=== PATIENT | male | born 1940 | race Caucasian/White ===

== ENCOUNTER → 2017-10-21 13:12 | Outpatient (CLI) | payer MEDICARE, SELFPAY ==
--- NOTE | 2017-10-21 13:19 | MRI_ITS ---
STUDY: MRI LEFT KNEE REASON FOR EXAM: Left knee pain for 3 months, injury years ago. TECHNIQUE: Standardized fat and water weighted pulse sequences were obtained in all 3 orthogonal planes. COMPARISON: Radiographs 08/09/2017. FINDINGS: There is a complex tear of the posterior horn of the medial meniscus (proton-density sagittal images 8-14) including a radial component (T2 coronal image 9). There is mild peripheral subluxation of the medial meniscus. There is mild arthrosis of the medial femorotibial compartment with mild partial-thickness chondral loss (T2 sagittal image 6). There is mild subchondral bone edema of the medial femoral condyle and tibial plateau (T2 sagittal images 5-7), a stress phenomenon. Normal medial collateral ligamentous complex (MCL). Normal distal semimembranosus, gracilis and semitendinosus tendons. There is a complex tear of the posterior horn of the lateral meniscus (proton-density sagittal images 33-35). Normal hyaline cartilage of the lateral femorotibial compartment. There is mild subchondral bone edema of the lateral tibial plateau (T2 coronal images 13-15), a stress phenomenon. Normal proximal tibiofibular articulation. Normal lateral collateral (fibular) ligament. Normal popliteus tendon. Normal biceps femoris tendon. Normal anterior cruciate ligament (ACL). Normal posterior cruciate ligament (PCL). Normal congruent patellofemoral articulation. There is arthrosis of the patellofemoral compartment with partial-thickness chondral loss (T2 sagittal image 14) and mild subchondral cystic change of the lateral femoral trochlea. Normal medial and lateral patellar retinaculum. Normal visualized quadriceps tendon. Normal patellar tendon. Normal Hoffa's fat pad. There is a small joint effusion. There is a popliteal cyst measuring approximately 5.3 cm in length with extravasation of fluid (T2 sagittal images 4-12). There is a chondroid series tumor in the distal femoral metaphysis (T2 coronal images 17-21) measuring 2.5 cm in length most suggestive of an enchondroma. MRI/Lower Ext Joint Only (Routine) IMPRESSION: Medial meniscal tear. Lateral meniscal tear. 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 Mild subchondral bone edema of the medial and lateral tibial plateau and medial femoral condyle, a stress phenomenon. Small joint effusion. Popliteal cyst with extravasation of fluid. 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 Electronically Signed: Siva Santos MD at 14:42 EST Tel , Service support ,
== END ==
PROVIDERS: Family Provider Family Medicine; PCP Family Medicine; Visit Provider Orthopaedic Surgery
DX: M23.305 Other meniscus derangements, unspecified medial meniscus, unspecified knee (principal)
CPT/HCPCS: 73721

== ENCOUNTER 2018-03-06 13:42 | Emergency (ER) | payer MEDICARE, SELFPAY ==
--- NOTE | 2018-03-06 13:42 | DT_ITS ---
This patient was seen during an EMR downtime February 27, 2018 - March 06, 2018. This patient may have a combination of paper and electronic documentation or all paper documentation. All documentation is viewable within the e-chart portion of [facility] for each patient visit.
[2018-03-06 13:43] VITALS: BP 124/78; PULSE 75; RESP 16; TEMP 36; O2SAT 96; BMI 28.4
--- NOTE | 2018-03-06 14:04 | CT_ITS ---
STUDY: CT ABDOMEN AND PELVIS WITHOUT CONTRAST REASON FOR EXAM: Male, 77 years old. Flank pain RADIATION DOSAGE (If Supplied By Facility): CTDIvol = ( 13.79 ) mGy, DLP = ( 676.38 ) mGycm TECHNIQUE: Transaxial images were obtained from the dome of the diaphragm to the symphysis pubis without oral contrast, and without intravenous contrast. Sagittal and coronal images were reconstructed. Individualized dose optimization techniques were used for this CT. COMPARISON: None. FINDINGS: The visualized lung bases are unremarkable. The visualized portions of the heart are within normal limits. There is a cystic structure within the liver measuring 1.5 cm. There is a cystic structure in the lower right hepatic lobe measuring 2.4 x 0.9 cm. Normal gallbladder and extrahepatic biliary system. Normal spleen. Normal pancreas. Normal bilateral adrenal glands. There is a stone in the right kidney measuring 4.0 mm. Normal left kidney. There is a small hiatal hernia. Normal small intestine. There is a moderate amount of stool in the colon. There is diverticulosis without evidence of diverticulitis. The appendix is visualized and appears normal. There is partial calcification of the aorta and bilateral renal arteries. Normal inferior vena cava. Normal retroperitoneum. There is mild wall thickening of the bladder. Normal visualized prostate gland. There is a small umbilical hernia containing fat. There is a left side fatty umbilical hernia. There are diffuse degenerative changes of the visualized lumbar spine. There is a bony hemangioma at the level L3. There is mild disc space narrowing and endplate sclerosis. There is mild neural foramina narrowing at L3-L4 L4-L5 and L5-S1. CT/Abdomen/Pelvis without Cont IMPRESSION: Right side mid renal stone. No visualized evidence of hydronephrosis. There is mild wall thickening of the bladder. Consider cystitis. There is borderline enlargement of the prostate with calcifications. Diverticulosis no evidence of diverticulitis. There is constipation and abundant stool within the ascending colon and cecum. Benign-appearing hepatic cysts. Electronically Signed: Екатерина Andino MD at 15:23 EDT Tel , Service support ,
[2018-03-06 14:27] LABS: Absolute Lymphocyte Count 1.02 X10^3/ul (0.83-4.51); Basophil# 0.03 X10^3/uL; Basophil% 0.3 % (0-1); Eosinophil# 0.06 X10^3/uL; Eosinophils% 0.7 % (0-5); Hematocrit 44.6 % (40-54); Hemoglobin 15.3 g/dl (13.0-16.5); Lymphocyte # 1.02 X10^3/ul (4.0); Lymphocyte % 11.7 % (19-41); Mean Corp Hgb Conc 34.3 g/gl (32-36); Mean Corpuscular Hgb 32.6 pg (27.0-32.0); Mean Corpuscular Volume 95.1 fL (80-94); Mean Platelet Vol. 10.3 fl (6.2-12.0); Monocyte# 0.61 X10^3/uL; Neutrophil # 6.95 X10^3/uL (2.7-7.7); Neutrophil % 80.1 % (47-70); Platelet Count 203 K/mm3 (150-450); RBC Distribution Width CV 13.1 % (11.6-14.6); RBC Distribution Width SD 44.4 fl (35.1-43.9); Red Blood Count 4.69 M/mm3 (4.6-6.2); White Blood Count 8.7 K/mm3 (4.4-11.0)
[2018-03-06 14:29] LABS: POSITIVE COUNT NO; POSITIVE DIFFERENTIAL NO; POSITIVE MORPHOLOGY NO
[2018-03-06 14:39] LABS: Anion Gap 8 (5-15); BUN 13 mg/dL (7-18); BUN/Creat Ratio 13.2 RATIO (10-20); Calcium,Total 8.6 mg/dL (8.5-10.1); Chloride 103 mmol/L (98-107); Creatinine, Serum 0.99 mg/dL (0.70-1.30); EST Glomerular Filtration Rate 78 mL/min (>60); Est Glom Filt Rate - Afr Amer 94 mL/min (>60); Glucose 118 mg/dL (74-106); Sodium Level 140 mmol/L (136-145)
[2018-03-06 15:22] LABS: Bacteria 0 SEEN /hpf (None Seen); Mucous, Urine 0 SEEN /hpf (<or=2+); Squamous Epithelial Cells - UA 0 SEEN /hpf (0-5); White Blood Cells 0 SEEN /hpf (0-5)
[2018-03-06 15:23] LABS: Color, Urine Yellow (Yellow); Glucose, Dipstick Normal (Normal); Ketone-Dipstick Negative (Negative); Leukocyte Esterase-Dipstick Negative /ul (Negative); Nitrite-Dipstick Negative (Negative); Occult Blood-Urine 10 /ul (Negative); Protein-Dipstick 30 mg/dl (Negative); Specific Gravity, Urine 1.015 (1.002-1.030); Urine Bilirubin Dipstick Negative (Negative); Urine Clarity Sl. Cloudy (Clear); Urine Urobilinogen Normal (Normal)
[2018-03-06 15:29] LABS: Red Blood Cells-Urine 0-5 SEEN /hpf (0-5)
--- NOTE | 2018-03-06 15:49 | ED.VIS.GEN ---
History of Present Illness Chief Complaint: Flank Pain Informant: Patient, Family Onset: Today, Hours - 4 Context: Sudden Onset Timing: Continuous Quality: achy, colicky Location: right flank Current Severity: Mild Maximum Severity: Severe Worsened by: nothing Relieved by: oxycodone Associated Symptoms: no fevers, urinary sx, n/v, injury Narrative: Same symptoms in the same side that he had a kidney stone in the past, feels just like it. No systemic symptoms. Was at rest when the symptoms started this morning. Prior similar symptoms: Yes - Past Medical History (1) HTN (hypertension) Status: Chronic (2) Hyperlipidemia Status: Chronic (3) BPH (benign prostatic hyperplasia) Status: Chronic Past Medical History - Allergies and Home Meds Allergies/Adverse Reactions: Allergies penicillin V Allergy (Mild, Verified 11/10/17 08:10) rash hydromorphone [From Dilaudid] Allergy (Verified 03/06/18 13:45) Other HALLUCINATIONS Primary Care Physician: Osman Perera DO [Primary Care Provider] - Surgical History: rotator cuff repair Lives: Spouse/ Significant Other Smoking Status: Never smoker Review of Systems All systems negative except as indicated General: Denies: Fever Cardiovascular: Denies: Chest pain, Palpitations Respiratory: Denies: Dyspnea, Cough Gastrointestinal: Reports: Abdominal pain. Denies: Nausea, Vomiting Musculoskeletal: Reports: Back pain. Denies: Myalgias, Arthralgias, Neck pain, Extremity Pain Skin: Denies: Rash, Wounds Neurological: Denies: Headache, Weakness, Parasthesia Physical Exam Vital Signs/Narrative: Vital Signs Temp Pulse Resp BP Pulse Ox 03/06/18 13:43 96.8 F L 75 16 124/78 H 96 Inital Vital Signs reviewed: Yes General: Well nourished, Well developed, - - well-appearing Head: Normocephalic, Atraumatic Eyes: Perrl, EOMI ENT: Moist mucous membranes, No rhinorrhea Neck: Supple, Nontender Cardiovascular: Regular rate, Regular rhythm, No murmurs Respiratory: No distress, CTA bilaterally, Chest nontender Abdomen: Soft, Nontender, Nondistended, Normal bowel sounds Back: Nontender, Normal Inspection. Negative for: CVA tenderness Extremities: Nontender, No edema Skin: Normal color, No rash Neurological: Alert, Oriented x3, Cranial nerves II-XII grossly intact, Normal Strength, Normal Sensation, Normal Gait Psychological: Normal affect Diagnostic/Tx/Re-eval Impressions Abdomen/Pelvis CT 03/06/18 14:04 IMPRESSION: Right side mid renal stone. No visualized evidence of hydronephrosis. There is mild wall thickening of the bladder. Consider cystitis. There is borderline enlargement of the prostate with calcifications. Diverticulosis no evidence of diverticulitis. There is constipation and abundant stool within the ascending colon and cecum. Benign-appearing hepatic cysts. Electronically Signed: Екатерина Andino MD at 15:23 EDT Tel , Service support , 03/06/18 14:04 CT Abd [Abdomen/Pelvis without Cont] [CT] Stat Laboratory Results 03/06/18 03/06/18 03/06/18 Range/Units 14:19 14:19 15:15 WBC 8.7 (4.4-11.0) K/mm3 RBC 4.69 (4.6-6.2) M/mm3 Hgb 15.3 (13.0-16.5) g/dl Hct 44.6 (40-54) % MCV 95.1 H (80-94) fL MCH 32.6 H (27.0-32.0) pg MCHC 34.3 (32-36) g/gl RDW 13.1 (11.6-14.6) % RDW Differential 44.4 H (35.1-43.9) fl Plt Count 203 (150-450) K/mm3 MPV 10.3 (6.2-12.0) fl Immature Gran % (Auto) 0.200 (0.0-0.9) % Neut % (Auto) 80.1 H (47-70) % Lymph % (Auto) 11.7 L (19-41) % [place] % (Auto) 7.0 (0-10) % Eos % (Auto) 0.7 (0-5) % Baso % (Auto) 0.3 (0-1) % Absolute Neuts (auto) 7.0 (2.0-7.7) X10^3/uL Absolute Lymphs (auto) 1.02 (0.83-4.51) X10^3/ul Total Counted Not Reportable Sodium 140 (136-145) mmol/L Potassium 4.0 (3.5-5.1) mmol/L Chloride 103 (98-107) mmol/L Carbon Dioxide 29.0 (21.0-32.0) mmol/L Anion Gap 8 (5-15) BUN 13 (7-18) mg/dL Creatinine 0.99 (0.70-1.30) mg/dL Est GFR (MDRD) Af Amer 94 (>60) mL/min Est GFR (MDRD) Non-Af 78 (>60) mL/min BUN/Creatinine Ratio 13.2 (10-20) RATIO Glucose 118 H (74-106) mg/dL Calcium 8.6 (8.5-10.1) mg/dL Urine Color Yellow (Yellow) Urine Clarity Sl. Cloudy (Clear) Urine pH 6.0 (5.0 - 8.0) Ur Specific [place] 1.015 (1.002-1.030) Urine Protein 30 H (Negative) mg/dl Urine Glucose (UA) Normal (Normal) mg/dl Urine Ketones Negative (Negative) mg/dl Urine Occult Blood 10 H (Negative) /ul Urine Nitrite Negative (Negative) Urine Bilirubin Negative (Negative) mg/dL Urine Urobilinogen Normal (Normal) mg/dl Ur Leukocyte Esterase Negative (Negative) /ul Urine RBC 0-5 SEEN (0-5) /hpf Urine WBC 0 SEEN (0-5) /hpf Ur Squamous Epith Cells 0 SEEN (0-5) /hpf Urine Bacteria 0 SEEN (None Seen) /hpf Urine Mucus 0 SEEN (<or=2+) /hpf - Medical Decision Making CT shows no signs of ureterolithiasis/urolithiasis except for a small calcification seen in the kidney that was there in 2007, the last time he was seen here for this problem. Labs are unremarkable. Urinalysis does show a small amount of blood, consistent with recently passed stone. He urinated 3 times prior to getting here, had some residual discomfort upon arrival, that completely resolved with observation and no further medications. At this time I think he is stable for discharge, encouraged to return if worse. ED Disposition - Plan for ED Patient: Disposition: Home or Assisted Living Chief Complaint: Flank Pain Diagnosis: Renal colic on right side, Right nephrolithiasis Instructions: ED Stone Renal Passed Referrals: Osman Perera DO [Primary Care Provider] - As Needed
[2018-03-06 15:54] VITALS: BP 130/77; PULSE 68; RESP 18
[2018-03-06 16:21] VITALS: BP 130/77; PULSE 68; RESP 18
== END 2018-03-06 16:22 | disposition home or self-care (01) ==
PROVIDERS: Emergency Provider Emergency Medicine; Family Provider Family Medicine; PCP Family Medicine
DX: N20.0 Calculus of kidney (principal); I10 Essential (primary) hypertension; E78.5 Hyperlipidemia, unspecified; N40.0 Benign prostatic hyperplasia without lower urinary tract symptoms
CPT/HCPCS: 74176; 80048; 81001; 85025; 99283; A4216

== ENCOUNTER 2018-05-08 06:24 | Inpatient (IN) | payer MEDICARE, SELFPAY ==
[2018-05-05 15:06] LABS: Partial Thromboplast Time 30.3 Seconds (24.1-36.2); Prothrombin Time (Protime)PT. 13.4 SECONDS (11.7-14.9)
[2018-05-05 15:13] LABS: AST(SGOT) 79 U/L (15-37); Alanine Aminotransfer ALT/SGPT 46 U/L (16-61); Albumin, Serum 3.7 g/dL (3.2-5.0); Alkaline Phosphatase 71 U/L (45-117); Bilirubin, Direct 0.19 mg/dL (0.00-0.30); Globulin 3.7 g/dL (2.2-4.2); Protein, Total 7.4 g/dL (6.4-8.2)
[2018-05-05 18:48] LABS: Anion Gap 6 (5-15); BUN 14 mg/dL (7-18); BUN/Creat Ratio 13.1 RATIO (10-20); Chloride 108 mmol/L (98-107); Creatinine, Serum 1.07 mg/dL (0.70-1.30); EST Glomerular Filtration Rate 71 mL/min (>60); Est Glom Filt Rate - Afr Amer 86 mL/min (>60); Glucose 94 mg/dL (74-106); Potassium 4.2 mmol/L (3.5-5.1); Sodium Level 142 mmol/L (136-145)
[2018-05-06 12:00] LABS: Absolute Lymphocyte Count 1.17 X10^3/ul (0.83-4.51); Absolute Neutrophil Count 4.5 X10^3/uL (2.0-7.7); Basophil# 0.02 X10^3/uL; Basophil% 0.3 % (0-1); Eosinophil# 0.22 X10^3/uL; Eosinophils% 3.3 % (0-5); Hematocrit 41.8 % (40-54); Hemoglobin 13.8 g/dl (13.0-16.5); Lymphocyte # 1.17 X10^3/ul (4.0); Lymphocyte % 17.8 % (19-41); Mean Corpuscular Hgb 31.5 pg (27.0-32.0); Mean Corpuscular Volume 95.4 fL (80-94); Mean Platelet Vol. 10.1 fl (6.2-12.0); Monocyte# 0.71 X10^3/uL; Monocyte% 10.8 % (0-10); Neutrophil # 4.46 X10^3/uL (2.7-7.7); Neutrophil % 67.6 % (47-70); Platelet Count 197 K/mm3 (150-450); RBC Distribution Width CV 12.9 % (11.6-14.6); RBC Distribution Width SD 45.2 fl (35.1-43.9); Red Blood Count 4.38 M/mm3 (4.6-6.2); White Blood Count 6.6 K/mm3 (4.4-11.0)
[2018-05-06 12:01] LABS: POSITIVE COUNT NO; POSITIVE DIFFERENTIAL NO; POSITIVE MORPHOLOGY NO
[2018-05-08] VITALS (15 sets, daily range): BP systolic 75–126; BP diastolic 40–79; PULSE 57–75; RESP 8–18; TEMP 36.1–36.9; O2SAT 93–100; BMI 28.4
[2018-05-08] MEDS: levoFLOXacin IV 500 MG/100 ML BAG 100 MG IV (07:35)
--- NOTE | 2018-05-08 08:45 | COL._PTH ---
PATIENT: ROVERTO CALLEJAS LOC: MS3 U#:[id number] AGE/SX: 77/M ROOM: [facility] [place]05[place]08/[address]: Dr. Ham Vidal MD : 1940 BED: 1 DIS: 05/12/2018 SPEC #: [id number] RECD: 05/08/18 12:52 STATUS: SAFIA RETiffany #: [id number] BERT: 05/08/18 08:[address]: Ham Vidal DEPT: SURGICAL PATHOLOGY RECD BY: Ham Del Valle ENTERED: 05/08/18 13:02 SP TYPE: COLON OTHR DR: Dr. 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 Appendix, hyperplastic changes. Four pericolonic lymph nodes with reactive changes. 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 MICROSCOPIC DESCRIPTION Slides are reviewed. GROSS DESCRIPTION Received in fixative is one container labeled with the patient's name and designated right colon. The specimen consists of a right hemicolectomy specimen consisting of cecum with ascending colon, small intestine and appendix with attached adipose tissue. The specimen is previously opened. The cecum with ascending colon measures 15 cm in length, segment of small intestine measures 5 cm in length and the appendix measures 6 cm in length and up to 0.5 cm in diameter. 5 cm away from the ileocecal valve and 5 cm away from the distal resection margin there is a sessile polyp measuring 3.5 x 1 x 0.6 cm. Both resection margins are stapled. More dictation will follow after overnight fixation. The pericolonic adipose tissue is fixed in lymph node revealing solution. / FANNIE:harris 05/08/18 Sections of the appendix reveal pinpoint lumen. No fecalith is identified. Sections of the polyp reveal it is entirely mucosal in location. No invasion into the underlying wall is noted. Sections of pericolonic adipose tissue reveal multiple lymph nodes. The largest lymph node measures 0.3 cm in greatest dimension. Traffic Inspector sections are submitted in eight cassettes as follows: 1 ? appendix, 2 ? proximal and distal resection margin, 36 ? entire polyp with underlying wall, 7 ? associate financial representative section of ileocecal valve, small and large intestine, 8 ? multiple lymph nodes. / FANNIE:harris 05/09/18 TC:1 CPT: 31611
--- NOTE | 2018-05-08 12:16 | PCM.OPRPT ---
Report of Operation Date of Procedure: 05/08/18 Pre-Operative Diagnosis: mid ascending colon polyp - multiple attempts at resection Post-Operative Diagnosis: mid ascending colon polyp - multiple attempts at resection - successfully removed Surgery/Procedure Performed:: laparoscopic right hemicolectomy Type of Anesthesia:: General Anesthesiologist: Freeman Vega - ASA2 Specimen's removed: right colon Estimated Blood Loss (mL): 100 Fluids Replaced: 1500 Description of Procedure: The patient was brought to the operating suite. Sign in was performed verifying patient, site, procedure, position, and DVT prophylaxis with SCDs. Patient Ciprofloxin 500mg Preoperative bowel prep of mechanical and antibiotic comprised of GoLYTELY and then neomycin and Flagyl 1 g 3 doses evening before was given Following induction of general anesthetic. The patients abdomen was prepped and draped in the usual fashion. Timeout was performed verifying patient, site, position. Local anesthetic was injected below the umbilicus. Incision made and dissection carried down to the umbilical root fascia. 2 stay sutures were placed. Incision made in the fascia, the peritoneum entered under direct visualization. A 10 mm Patel trocar was inserted and secured with the stay sutures. Pneumoperitoneum to 15 mmHg was insufflated. Visual inspection revealed normal-appearing liver, normal-appearing visualized abdominal structures. Tattooing was visible in the mid ascending colon.. 3 - 5mm ports were placed in the standard midline position. Mobilization the avascular plane was undertaken from the base of the cecum up and around the hepatic flexure. Division of the lesser sac from the midline to the hepatic flexure was undertaken. When this was fully mobilized. The duodenum was visualized from the right flank region. Next, the terminal ileum area was brought up and a cleavage point noted in the mesentery. Harmonic Scalpel was used to create a window in the terminal ileal mesentery and division was taken down to the ileocolic root. Next the transverse colon was grasped and the vasculature coming from the middle colic vessel was identified. A window was made in the bare area proximal to the middle colic vessels just overlying the duodenal sweep. This was also fully divided. Dissection was then carried out at the ileal colic vessel root. The artery and vein were identified and doubly clipped proximally and doubly clipped distally with Hem-o-jose luis clips. With full dissection of the mesentery and full mobilization the colon, the umbilical incision was extended and a wound protector placed. The terminal ileum and cecum ascending colon part of the transverse colon were delivered through the wound protector. Complete division of the mesentery to the bowel was undertaken at both sites. The bowel was transected with an intestinal load echelon stapler. On this a functional stapled end-to-end anastomosis was performed between the ileum and transverse colon with an echelon stapler. The staple line was checked for hemostasis and following this the anastomosis closed with a TA stapler creating a wide triangle opening that was easily palpable. A 3-0 silk suture was used to take tension off the apex of the staple line.e. At this point, the specimen was opened on the back table. There was noted to be tumor in the expected location. Gown and gloves were changed. Pneumoperitoneum was reestablished. The 5mm ports were removed under direct visualization with no signs of bleeding. Pneumoperitoneum was released. The umbilical fascial defect was closed with a running 0 PDS suture. Subcutaneous fat reapproximated with interrupted 3-0 Vicryl sutures. Skin was closed with interrupted 4-0 Monocryl subcuticular sutures. Steri-Strips and bandages were applied. The patient was brought to recovery room in stable condition. - Admit VTE Documentation VTE Present on Admission: No VTE Mechan Device Prophylaxis: SCD's VTE Pharm Prophylaxis ordered?: No
[2018-05-08] MEDS: Bupivacaine 0.5% PF 10 ML VIAL (12:22)
--- NOTE | 2018-05-08 12:29 | OP.PCM_ITS ---
Report of Operation Date of Procedure: 05/08/18 Pre-Operative Diagnosis: mid ascending colon polyp - multiple attempts at resection Post-Operative Diagnosis: mid ascending colon polyp - multiple attempts at resection - successfully removed Surgery/Procedure Performed:: laparoscopic right hemicolectomy wardrobe coordinator: Aysha Holguin Type of Anesthesia:: General Anesthesiologist: Freeman Veag - ASA2 Specimen's removed: right colon Estimated Blood Loss (mL): 100 Fluids Replaced: 1500
--- NOTE | 2018-05-08 14:15 | NURSING ---
pt arrived to floor from pacu. pt wakes easy. vitals 97.1 temp hr 60, resp 16 with 25-30 sec apnea. sats 93% on 3.5l nc bp left arm 83/43, right arm 75/40. paged dr haro. rechecked vital signs bp 78/42 hr 57, resp 8 with 30 sec apnea, sats 93% on 3.5l nc. pt wakes easy and talking to nursing. dr haro returned page and ordered 500cc lr bolus. bolus given per dr weir.
[2018-05-08] MEDS: Lactated Ringers 1,000 ML 80 ML IV (14:18)
[2018-05-08] MEDS: Lactated Ringers 500 ML 999 ML IV ×2 (14:19→15:55)
[2018-05-08] MEDS: Ondansetron 4 MG/2 ML Vial IV (15:10)
--- NOTE | 2018-05-08 21:20 | NURSING ---
patient ambulated in hallway with this rn
[2018-05-08] MEDS: Ciprofloxacin 400 MG/200 ML BAG 200 MG IV (21:23)
[2018-05-08] MEDS: Atorvastatin Calcium 10 MG Tablet 30 MG PO (21:24)
[2018-05-09 02:07] VITALS: BP 123/66; PULSE 76; RESP 18; TEMP 36.4; O2SAT 96
[2018-05-09] MEDS: Lactated Ringers 1,000 ML 80 ML IV (03:34)
[2018-05-09 06:16] LABS: Absolute Lymphocyte Count 0.74 X10^3/ul (0.83-4.51); Absolute Neutrophil Count 10.4 X10^3/uL (2.0-7.7); Eosinophil# 0.01 X10^3/uL; Eosinophils% 0.1 % (0-5); Hematocrit 37.9 % (40-54); Hemoglobin 12.8 g/dl (13.0-16.5); Lymphocyte # 0.74 X10^3/ul (4.0); Lymphocyte % 5.9 % (19-41); Mean Corp Hgb Conc 33.8 g/gl (32-36); Mean Corpuscular Hgb 32.2 pg (27.0-32.0); Mean Corpuscular Volume 95.5 fL (80-94); Mean Platelet Vol. 10.5 fl (6.2-12.0); Monocyte# 1.25 X10^3/uL; Neutrophil # 10.42 X10^3/uL (2.7-7.7); Neutrophil % 83.8 % (47-70); Platelet Count 177 K/mm3 (150-450); RBC Distribution Width CV 13.2 % (11.6-14.6); Red Blood Count 3.97 M/mm3 (4.6-6.2); White Blood Count 12.4 K/mm3 (4.4-11.0)
[2018-05-09 06:19] LABS: POSITIVE COUNT NO; POSITIVE DIFFERENTIAL NO; POSITIVE MORPHOLOGY NO
[2018-05-09 06:25] LABS: Anion Gap 10 (5-15); BUN 16 mg/dL (7-18); BUN/Creat Ratio 14.8 RATIO (10-20); Calcium,Total 8.4 mg/dL (8.5-10.1); Chloride 106 mmol/L (98-107); Creatinine, Serum 1.08 mg/dL (0.70-1.30); EST Glomerular Filtration Rate 70 mL/min (>60); Est Glom Filt Rate - Afr Amer 85 mL/min (>60); Glucose 105 mg/dL (74-106); Potassium 4.2 mmol/L (3.5-5.1); Sodium Level 142 mmol/L (136-145)
[2018-05-09 08:00] VITALS: BP 146/72; PULSE 64; RESP 18; TEMP 36.8; O2SAT 98
[2018-05-09] MEDS: Ciprofloxacin 400 MG/200 ML BAG 200 MG IV (09:36)
[2018-05-09] MEDS: amLODIPine 10 MG Tablet PO (09:36)
[2018-05-09] MEDS: Aspirin E.C. 81 MG Tablet PO (09:36)
[2018-05-09] MEDS: Finasteride 5 MG Tablet PO (09:37)
--- NOTE | 2018-05-09 11:20 | CASEMGMT ---
RN GÉNESIS Face to Face with patient for initial transition planning/care coordination assessment. RN CM introduced self and role at [facility]. Patient sitting in chair, alert and oriented, family at bedside. Patient willing to participate in assessment and is able to answer all questions appropriately. Care providers, pharmacy, and demographics verified. See link attached. Patient wishes to discharge home, denies need for home health at this time. Patient states he has no further needs or concerns at this time. CM to follow for discharge planning needs that may arise. Disposition Plan: Patient to discharge home with family support and follow-up plans in place.
[2018-05-09 12:29] VITALS: BP 141/74; PULSE 59; RESP 18; TEMP 36.6; O2SAT 98
[2018-05-09 16:50] VITALS: BP 140/65; PULSE 58; RESP 18; TEMP 36.1; O2SAT 97
--- NOTE | 2018-05-09 19:10 | PCM.PN.SRG ---
Subjective: no complaints, no significant pain, - Physical Exam General: Alert, Oriented x3, Cooperative Lungs: Clear to auscultation, Normal air movement Cardiovascular: Regular rate, No murmurs Abdomen: Bowel Sounds Present, Soft, Non Tender Vital Signs Temp Pulse Resp BP Pulse Ox 97.0 F L 58 L 18 140/65 H 97 05/09/18 16:50 05/09/18 16:50 05/09/18 16:50 05/09/18 16:50 05/09/18 16:50 Oxygen Flow Rate (L/min) 2 Oxygen Delivery Method Room Air Weight: 90 kg Body Mass Index (BMI) 28.4 Intake and Output for Last 24 Hours 05/07/18 05/08/18 05/09/18 23:59 23:59 23:59 Intake Total 2959 / 2959 2098 / 2099 Output Total 225 / 225 1974 / 1974 Balance 2734 / 2734 124 / 124 Laboratory Tests Past 24 Hrs 05/09/18 05/09/18 05:15 05:15 WBC 12.4 H RBC 3.97 L Hgb 12.8 L Hct 37.9 L MCV 95.5 H MCH 32.2 H MCHC 33.8 RDW 13.2 RDW Differential 46.0 H Plt Count 177 MPV 10.5 Immature Gran % (Auto) 0.200 Neut % (Auto) 83.8 H Lymph % (Auto) 5.9 L [place] % (Auto) 10.0 Eos % (Auto) 0.1 Baso % (Auto) 0.0 Absolute Neuts (auto) 10.4 H Absolute Lymphs (auto) 0.74 L Total Counted Not Reportable Sodium 142 Potassium 4.2 Chloride 106 Carbon Dioxide 26.0 Anion Gap 10 BUN 16 Creatinine 1.08 Estim Creat Clear Calc 58.20 Est GFR (MDRD) Af Amer 85 Est GFR (MDRD) Non-Af 70 BUN/Creatinine Ratio 14.8 Glucose 105 Calcium 8.4 L Medical Necessity - Tobacco Use Smoking Status: Never smoker Tobacco Use: Non-smoker Assessment/Plan postoperative day #1 status post laparoscopic right hemicolectomy for recurring ascending colon polyp. patient is doing quite well after initial hypotension and low urine output. The patient has minimal abdominal pain and has taken no narcotics postoperatively area did encourage Motrin as needed. He is tolerating sips of liquids and actually needs to be encouraged, but not quite as much area. We will Hep-Lock his IV. He is utilizing incentive spirometer well and has been ambulating in the hallways. He has bowel sounds, but has not passed flatus yet. We will continue sips of clear liquidsuntil the patient has flatus.
[2018-05-09 19:55] VITALS: BP 150/77; PULSE 71; RESP 16; TEMP 36.7; O2SAT 96
[2018-05-09] MEDS: Atorvastatin Calcium 20 MG Tablet PO (21:47)
--- NOTE | 2018-05-09 21:50 | NURSING ---
Patient up and ambulating in hallway with his at this time.
[2018-05-10 02:30] VITALS: BP 117/56; PULSE 75; RESP 16; TEMP 37.3; O2SAT 94
[2018-05-10 09:44] VITALS: BP 109/71; PULSE 92; RESP 18; TEMP 36.8; O2SAT 98
[2018-05-10] MEDS: Finasteride 5 MG Tablet PO (09:46)
[2018-05-10] MEDS: Aspirin E.C. 81 MG Tablet PO (09:46)
[2018-05-10] MEDS: amLODIPine 10 MG Tablet PO (09:46)
--- NOTE | 2018-05-10 10:57 | PCM.PN.SRG ---
Subjective: no complaints - Physical Exam General: Alert, Oriented x3 Lungs: Clear to auscultation, Normal air movement Cardiovascular: Regular rate, Regular Rhythm Abdomen: Bowel Sounds Present, Soft, Non Tender Vital Signs Temp Pulse Resp BP Pulse Ox 98.3 F 92 18 109/71 98 05/10/18 09:44 05/10/18 09:44 05/10/18 09:44 05/10/18 09:44 05/10/18 09:44 Oxygen Flow Rate (L/min) 2 Oxygen Delivery Method Room Air Weight: 90 kg Body Mass Index (BMI) 28.4 Intake and Output for Last 24 Hours 05/08/18 05/09/18 05/10/18 23:59 23:59 23:59 Intake Total 2959 / 2959 2099 / 2099 250 / 250 Output Total 225 / 225 1974 / 1974 Balance 2734 / 2734 124 / 124 250 / 250 Medical Necessity - Tobacco Use Smoking Status: Never smoker Tobacco Use: Non-smoker Assessment/Plan postoperative day #2 status post laparoscopic right hemicolectomy for recurring ascending colon polyp. patient is doing quite well after initial hypotension and low urine output. The patient has minimal abdominal pain and has taken no narcotics postoperatively area did encourage Motrin as needed. He is tolerating sips of liquids and actually needs to be encouraged, but not quite as much area. We will Hep-Lock his IV. He is utilizing incentive spirometer well and has been ambulating in the hallways. He has bowel sounds, but has not passed flatus yet. We will continue sips of clear liquidsuntil the patient has flatus.
[2018-05-10 15:00] VITALS: BP 120/78; PULSE 94; RESP 18; TEMP 36.3; O2SAT 94
[2018-05-10] MEDS: proCHLORPERazine 10 MG/2 ML Vial IV (16:03)
[2018-05-10] MEDS: 0.9% NaCl Peripheral Flush Adult/Peds IV (16:03)
[2018-05-10 20:02] VITALS: BP 135/81; PULSE 87; RESP 18; TEMP 37.2; O2SAT 94
[2018-05-10] MEDS: Atorvastatin Calcium 20 MG Tablet PO (21:01)
[2018-05-10] MEDS: Mag Hydrox/Al Hydrox/Simeth 30 ML UDC PO (23:23)
[2018-05-11 02:02] VITALS: BP 118/67; PULSE 79; RESP 18; TEMP 37; O2SAT 94
[2018-05-11 08:02] VITALS: BP 133/79; PULSE 87; RESP 18; TEMP 36.8; O2SAT 94
[2018-05-11] MEDS: Aspirin E.C. 81 MG Tablet PO (09:00)
[2018-05-11] MEDS: amLODIPine 10 MG Tablet PO (09:00)
[2018-05-11] MEDS: Finasteride 5 MG Tablet PO (09:00)
--- NOTE | 2018-05-11 12:08 | PCM.PN.SRG ---
Subjective: passing flatus - Physical Exam General: Alert, Oriented x3, Cooperative Lungs: Clear to auscultation, Normal air movement Cardiovascular: Regular rate, No murmurs Vital Signs Temp Pulse Resp BP Pulse Ox 98.3 F 87 18 133/79 H 94 05/11/18 08:02 05/11/18 08:02 05/11/18 08:02 05/11/18 08:02 05/11/18 08:02 Oxygen Flow Rate (L/min) 2 Oxygen Delivery Method Room Air Weight: 90 kg Body Mass Index (BMI) 28.4 Intake and Output for Last 24 Hours 05/09/18 05/10/18 05/11/18 23:59 23:59 23:59 Intake Total 2099 / 2099 790 / 790 Output Total 1974 400 / 400 Balance 124 / 124 390 / 390 Medical Necessity - Tobacco Use Smoking Status: Never smoker Tobacco Use: Non-smoker Assessment/Plan postoperative day #3 status post laparoscopic right hemicolectomy for recurring ascending colon polyp. patient is doing quite well after initial hypotension and low urine output. The patient has minimal abdominal pain and has taken no narcotics postoperatively area did encourage Motrin as needed. He is tolerating sips of liquids and actually needs to be encouraged, but not quite as much area. We Hep-Locked his IV. He is utilizing incentive spirometer well and has been ambulating in the hallways. He has bowel sounds and has passed flatus. We will advance his diet. Anticipated discharge home tomorrow. Patient is stating he has not requesting narcotic pain medication for home.
--- NOTE | 2018-05-11 12:11 | PCM.DC.GS ---
Discharge Diet: Light diet - advance as tolerated - If you have questions about your diet instructions, please talk to your doctor. Discharge Activity: May Not Drive - for 1 week or while taking narcotic pain meds. May shower in (days): 1 Lifting Restrictions: 10 pounds Call your doctor if your incision/area has: Continuous Slow Oozing, Sudden Increased Bleeding, Increased Pain/ Swelling, Increased Redness, Foul Smelling Discharge Call your doctor if you observe: Fever of 101 or Higher Suture Line Care: Avoid Pulling/Pushing, Avoid Pinching/Bending Additional Dressing/Incision Instructions:: Change or remove dressing in 4 days. Leave steri-strips in place for 1 week. Allergies/Adverse Reactions: Allergies penicillin V Allergy (Mild, Verified 05/02/18 08:57) rash hydromorphone [From Dilaudid] Allergy (Verified 05/02/18 08:57) Other HALLUCINATIONS Medications to take at Discharge amlodipine 10 mg tablet 10 mg PO QDAY 09/06/17 aspirin 81 mg tablet,delayed release 81 mg PO QDAY 09/06/17 atorvastatin 20 mg tablet 20 mg PO QDAY 09/06/17 finasteride 5 mg tablet 5 mg PO QDAY 09/06/17 RX: Cholecalciferol (Vitamin D3) [Vitamin D3] 1,000 unit PO DAILY 05/02/18 RX: Multivitamin [Multiple Vitamins] 1 each PO DAILY 05/02/18 RX: Ibuprofen [Motrin] 400 mg PO Q4H PRN PRN tablet 05/11/18 RX: Mag Hydrox/Al Hydrox/Simeth [Mylanta II] 30 ml PO Q6H PRN PRN udc 05/11/18 Primary Care Physician: Osman Perera DO [Primary Care Provider] - Test Results: Test results from this visit will be discussed in further detail at your follow-up appointment, if applicable. Please Follow Up With: Ham Vidal MD - [phone] When: Call to make an appointment to be seen in about 7 days.
[2018-05-11 14:02] VITALS: BP 134/72; PULSE 75; RESP 18; TEMP 36.9; O2SAT 95
[2018-05-11 19:38] VITALS: BP 132/79; PULSE 75; RESP 18; TEMP 37; O2SAT 96
[2018-05-11] MEDS: Atorvastatin Calcium 20 MG Tablet PO (22:20)
[2018-05-12 01:38] VITALS: BP 130/72; PULSE 78; RESP 16; TEMP 36.8; O2SAT 96
[2018-05-12] MEDS: amLODIPine 10 MG Tablet PO (09:32)
[2018-05-12] MEDS: Finasteride 5 MG Tablet PO (09:32)
[2018-05-12] MEDS: Aspirin E.C. 81 MG Tablet PO (09:32)
[2018-05-12 09:41] VITALS: BP 117/71; PULSE 91; RESP 18; TEMP 37; O2SAT 96
[2018-05-12] MEDS: Ibuprofen 400 MG Tablet PO (14:51)
[2018-05-12 14:52] VITALS: BP 128/69; PULSE 95; RESP 18; TEMP 36.9; O2SAT 97
--- NOTE | 2018-05-15 15:20 | PCM.DC.SUM ---
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 She underwent a laparoscopic right hemicolectomy. He was tolerating liquids and passed flatus on postoperative day 3 and was discharged home on postoperative day 4. Discharge Diet: Light diet - advance as tolerated - If you have questions about your diet instructions, please talk to your doctor. Discharge Activity: May Not Drive - for 1 week or while taking narcotic pain meds. May shower in (days): 1 Call your doctor if your incision/area has: Continuous Slow Oozing, Sudden Increased Bleeding, Increased Pain/ Swelling, Increased Redness, Foul Smelling Discharge Call your doctor if you observe: Fever of 101 or Higher Suture Line Care: Avoid Pulling/Pushing, Avoid Pinching/Bending Additional Dressing/Incision Instructions:: Change or remove dressing in 4 days. Leave steri-strips in place for 1 week. Home Medications: Medications to take at Discharge amlodipine 10 mg tablet 10 mg PO QDAY 09/06/17 aspirin 81 mg tablet,delayed release 81 mg PO QDAY 09/06/17 atorvastatin 20 mg tablet 20 mg PO QDAY 09/06/17 finasteride 5 mg tablet 5 mg PO QDAY 09/06/17 Cholecalciferol (Vitamin D3) [Vitamin D3] 1,000 unit PO DAILY 05/02/18 Multivitamin [Multiple Vitamins] 1 each PO DAILY 05/02/18 Ibuprofen [Motrin] 400 mg PO Q4H PRN PRN tablet 05/11/18 Mag Hydrox/Al Hydrox/Simeth [Mylanta II] 30 ml PO Q6H PRN PRN udc 05/11/18 Primary Care Physician: Osman Perera DO [Primary Care Provider] - Please Follow Up With: Ham Vidal MD - [phone] When: Call to make an appointment to be seen in about 7 days. Medical Necessity - Tobacco Use Smoking Status: Never smoker Tobacco Use: Non-smoker Meaningful Use Info Meaningful Use Diagnoses (Choose all that apply): None applicable
== END 2018-05-12 15:32 | disposition home or self-care (01) | DRG 331 ==
PROVIDERS: Admitting Provider Surgery; Family Provider Family Medicine; PCP Family Medicine; Visit Provider Surgery
PROC: 0DTF4ZZ Resection of Right Large Intestine, Percutaneous Endoscopic Approach (ICD-10-PCS; CPT 44205; principal; 2018-05-08 08:25)
DX: D12.0 Benign neoplasm of cecum (principal); E78.5 Hyperlipidemia, unspecified; I10 Essential (primary) hypertension; N40.0 Benign prostatic hyperplasia without lower urinary tract symptoms
CPT/HCPCS: 36415; 80048; 80076; 85025; 85610; 85730; 88307; 88309; 93005; J7120; A4216; J0744; J2405

== ENCOUNTER → 2018-07-10 11:35 | Outpatient (CLI) | payer MEDICARE, SELFPAY ==
[2018-07-10 12:36] LABS: Cholesterol 170 mg/dL (200); High Density Lipoprotein 49 mg/dL; Triglycerides 115 mg/dL; Very Low Density Lipoprotein 23 mg/dL (5-40)
== END ==
PROVIDERS: Family Provider Family Medicine; PCP Family Medicine; Referring Provider Family Medicine; Visit Provider Family Medicine
DX: E78.5 Hyperlipidemia, unspecified (principal)
CPT/HCPCS: 36415; 80061

== ENCOUNTER → 2018-09-29 10:40 | Outpatient (CLI) | payer MEDICARE, SELFPAY ==
[2018-09-29 12:43] LABS: Hemoglobin A1c 5.8 % (4.2-6.3)
[2018-09-29 12:45] LABS: Vitamin D,25 Hydroxy 33.1 ng/mL (29.95-100.01)
== END ==
LOC: LAB.FUTURE 09-10 17:49 → BFHLAB 03-11 14:49
PROVIDERS: Family Provider Family Medicine; PCP Family Medicine; Visit Provider Family Medicine
DX: E55.9 Vitamin D deficiency, unspecified (principal); R73.9 Hyperglycemia, unspecified
CPT/HCPCS: 36415; 82306; 83036

== ENCOUNTER → 2019-07-24 12:00 | Outpatient (CLI) | payer MEDICARE, SELFPAY ==
[2018-05-08 13:55] VITALS: BMI 28.4
--- NOTE | 2019-07-24 12:03 | RAD_ITS ---
STUDY: X-RAY CHEST REASON FOR EXAM: Male, 78 years old. Cough TECHNIQUE: PA and lateral views of the chest. COMPARISON: 10/19/2010 FINDINGS: Cardiac silhouette unremarkable. Pulmonary vascularity unremarkable. Aorta unremarkable. No focal airspace consolidation. No pleural effusions. Well-circumscribed calcified nodule posteriorly is stable compared to the examination of 2010 Upper abdomen unremarkable. Osseous structures intact. No pneumothorax. RAD/Chest PA and Lateral IMPRESSION: No acute cardiopulmonary findings Electronically Signed: Issa Fletcher, at 12:58 EDT Tel , Service support ,
== END ==
PROVIDERS: Family Provider Family Medicine; PCP Family Medicine; Referring Provider Family Medicine; Visit Provider Family Medicine
DX: R05 Cough (principal); R06.00 Dyspnea, unspecified
CPT/HCPCS: 71046

== ENCOUNTER → 2019-07-26 10:18 | Outpatient (CLI) | payer MEDICARE, SELFPAY ==
[2019-07-26 12:19] LABS: Absolute Lymphocyte Count 1.24 X10^3/uL (0.83-4.51); Absolute Neutrophil Count 5.7 X10^3/uL (2.0-7.7); Basophil# 0.04 X10^3/uL; Basophil% 0.5 % (0-1); Eosinophil# 0.21 X10^3/uL; Eosinophils% 2.7 % (0-5); Hematocrit 44.5 % (40-54); Lymphocyte # 1.24 X10^3/ul (4.0); Lymphocyte % 15.8 % (19-41); Mean Corp Hgb Conc 33.7 g/dL (32-36); Mean Corpuscular Hgb 32.3 pg (27.0-32.0); Mean Corpuscular Volume 95.7 fL (80-94); Mean Platelet Vol. 10.6 fl (6.2-12.0); Monocyte# 0.62 X10^3/uL; Monocyte% 7.9 % (0-10); NRBC Flagged by Analyzer 0 % (0-5); Neutrophil % 72.7 % (47-70); Platelet Count 222 K/mm3 (150-450); RBC Distribution Width CV 12.2 % (11.6-14.6); Red Blood Count 4.65 M/mm3 (4.6-6.2); White Blood Count 7.8 K/mm3 (4.4-11.0)
[2019-07-26 12:34] LABS: AST(SGOT) 18 U/L (15-37); Alanine Aminotransfer ALT/SGPT 33 U/L (16-61); Albumin, Serum 3.7 g/dL (3.2-5.0); Alkaline Phosphatase 73 U/L (45-117); Anion Gap 5 (5-15); BUN 15 mg/dL (7-18); BUN/Creat Ratio 14.2 RATIO (10-20); Calcium,Total 9.2 mg/dL (8.5-10.1); Chloride 105 mmol/L (98-107); Creatinine, Serum 1.06 mg/dL (0.70-1.30); EST Glomerular Filtration Rate 72 mL/min (>60); Est Glom Filt Rate - Afr Amer 87 mL/min (>60); Globulin 3.7 g/dL (2.2-4.2); Glucose 110 mg/dL (74-106); Potassium 3.9 mmol/L (3.5-5.1); Protein, Total 7.4 g/dL (6.4-8.2); Sodium Level 140 mmol/L (136-145)
[2019-07-28 13:40] LABS: EBV Acute VCA IgM < 36.0 U/mL (0.0-35.9); EBV Early Antigen IgG <9.0 U/mL (0.0-8.9); EBV Nuclear Antigen IgG 60.9 U/mL (0.0-17.9)
== END ==
LOC: LAB.FUTURE 10:18 → BFHLAB 10:26
PROVIDERS: Family Provider Family Medicine; PCP Family Medicine; Visit Provider Family Medicine
DX: R05 Cough (principal); R53.83 Other fatigue; J02.9 Acute pharyngitis, unspecified
CPT/HCPCS: 36415; 80053; 85025; 86663; 86664; 86665

== ENCOUNTER → 2020-02-25 10:39 | Outpatient (CLI) | payer MEDICARE, SELFPAY ==
[2018-05-08 13:55] VITALS: BMI 28.4
[2020-02-25 12:28] LABS: Absolute Lymphocyte Count 1.33 X10^3/uL (0.83-4.51); Basophil# 0.05 X10^3/uL; Basophil% 0.8 % (0-1); Eosinophil# 0.12 X10^3/uL; Hematocrit 43.2 % (40-54); Hemoglobin 14.3 g/dL (13.0-16.5); Lymphocyte # 1.33 X10^3/ul (4.0); Lymphocyte % 21.8 % (19-41); Mean Corp Hgb Conc 33.1 g/dL (32-36); Mean Corpuscular Hgb 31.6 pg (27.0-32.0); Mean Corpuscular Volume 95.4 fL (80-94); Mean Platelet Vol. 10.9 fl (6.2-12.0); Monocyte# 0.59 X10^3/uL; Monocyte% 9.7 % (0-10); NRBC Flagged by Analyzer 0 % (0-5); Neutrophil % 65.4 % (47-70); Platelet Count 204 K/mm3 (150-450); RBC Distribution Width CV 12.7 % (11.6-14.6); RBC Distribution Width SD 44.3 fl (35.1-43.9); Red Blood Count 4.53 M/mm3 (4.6-6.2); White Blood Count 6.1 K/mm3 (4.4-11.0)
[2020-02-25 13:10] LABS: ALB/GLOB Ratio 0.9 RATIO (0.9-2.4); AST(SGOT) 26 U/L (15-37); Alanine Aminotransfer ALT/SGPT 43 U/L (16-61); Albumin, Serum 3.6 g/dL (3.2-5.0); Alkaline Phosphatase 67 U/L (45-117); Anion Gap 7 (5-15); BUN 14 mg/dL (7-18); BUN/Creat Ratio 13.1 RATIO (10-20); Calcium,Total 8.7 mg/dL (8.5-10.1); Chloride 107 mmol/L (98-107); Cholesterol 171 mg/dL (200); Creatinine, Serum 1.07 mg/dL (0.70-1.30); EST Glomerular Filtration Rate 71 mL/min (>60); Est Glom Filt Rate - Afr Amer 85 mL/min (>60); Globulin 3.8 g/dL (2.2-4.2); Glucose 106 mg/dL (74-106); High Density Lipoprotein 48 mg/dL; Potassium 3.9 mmol/L (3.5-5.1); Protein, Total 7.4 g/dL (6.4-8.2); Sodium Level 141 mmol/L (136-145); Triglycerides 106 mg/dL; Very Low Density Lipoprotein 21 mg/dL (5-40)
== END ==
PROVIDERS: Family Provider Family Medicine; PCP Family Medicine; Visit Provider Family Medicine
DX: R05 Cough (principal); R53.83 Other fatigue; J02.9 Acute pharyngitis, unspecified; E78.5 Hyperlipidemia, unspecified; I10 Essential (primary) hypertension; R73.9 Hyperglycemia, unspecified
CPT/HCPCS: 36415; 80053; 80061; 85025

== ENCOUNTER 2020-10-23 15:38 | Outpatient (RCR) | payer MEDICARE, SELFPAY ==
[2018-05-08 13:55] VITALS: BMI 28.4
== END 2020-10-23 23:59 ==
LOC: IMMUN 15:38
PROVIDERS: PCP Family Medicine; Visit Provider Family Medicine
DX: Z23 Encounter for immunization (principal)
CPT/HCPCS: 0011A; 0012A

== ENCOUNTER 2021-07-28 17:18 | Outpatient (CLI) | payer MEDICARE, SELFPAY ==
[2021-07-28] MEDS: 0.9% Saline Lock 10 ML Syringe IV ×2 (17:46→18:50)
[2021-07-28 17:49] VITALS: BP 153/77; PULSE 77; RESP 16; TEMP 37.5; O2SAT 98; BMI 28.7
[2021-07-28 18:39] VITALS: BP 143/75; PULSE 73; RESP 16; TEMP 38.3; O2SAT 97
--- NOTE | 2021-07-28 18:45 | NURSING ---
Pt c/o mild itching to bilateral legs. Legs examined, no rash or hives noted but mild redness where pt had scratched. No evidence of rash/hives anywhere else on pt. Pt denies any other symptoms. Will medicate with prn solumedrol per orders for pruitis and cont. to monitor. Pt offered tylenol for temp 100.9 declines.
[2021-07-28] MEDS: MethylPREDNISolone 125 MG/2 ML Vial IV (18:50)
--- NOTE | 2021-07-28 19:05 | NURSING ---
Pt reports no further itching at this time or any other symptoms. Pt states I just had itching for a couple of minutes and then it was gone. No rash/hives noted.
--- NOTE | 2021-07-28 19:16 | NURSING ---
Pt resting in chair w/ eyes closed.
[2021-07-28 19:38] VITALS: BP 153/63; PULSE 79; RESP 16; TEMP 37.2; O2SAT 100
== END 2021-07-28 19:45 | disposition home or self-care (01) ==
LOC: MS3OUT 17:19 → MS3 17:19
PROVIDERS: PCP Family Medicine; Referring Provider Nurse Practitioner Adult Health; Visit Provider Nurse Practitioner Adult Health
DX: Z23 Encounter for immunization (principal); U07.1 COVID-19
CPT/HCPCS: J7050; M0245; Q0245; A4216

== ENCOUNTER → 2022-07-15 | Outpatient (CLI) | payer MEDICARE, SELFPAY ==
[2022-07-15 12:20] LABS: Absolute Lymphocyte Count 1.28 X10^3/uL (0.83-4.51); Absolute Neutrophil Count 3.8 X10^3/uL (2.0-7.7); Basophil# 0.05 X10^3/uL; Basophil% 0.8 % (0-1); Eosinophil# 0.17 X10^3/uL; Eosinophils% 2.9 % (0-5); Hematocrit 44.7 % (40-54); Hemoglobin 14.8 g/dL (13.0-16.5); Lymphocyte # 1.28 X10^3/ul (0.83-4.51); Lymphocyte % 21.6 % (19-41); Mean Corp Hgb Conc 33.1 g/dL (32-36); Mean Corpuscular Hgb 31.8 pg (27.0-32.0); Mean Corpuscular Volume 96.1 fL (80-94); Mean Platelet Vol. 10.7 fl (6.2-12.0); Monocyte# 0.61 X10^3/uL; Monocyte% 10.3 % (0-10); NRBC Flagged by Analyzer 0 % (0-5); Neutrophil # 3.79 X10^3/uL (2.7-7.7); Neutrophil % 63.9 % (47-70); Platelet Count 229 K/mm3 (150-450); RBC Distribution Width CV 12.6 % (11.6-14.6); RBC Distribution Width SD 44.8 fl (35.1-43.9); Red Blood Count 4.65 M/mm3 (4.6-6.2); White Blood Count 5.9 K/mm3 (4.4-11.0)
[2022-07-15 12:34] LABS: Vitamin D,25 Hydroxy 32.4 ng/mL
[2022-07-15 12:41] LABS: ALB/GLOB Ratio 0.9 RATIO (0.9-2.4); AST(SGOT) 24 U/L (15-37); Alanine Aminotransfer ALT/SGPT 40 U/L (16-61); Albumin, Serum 3.6 g/dL (3.2-5.0); Alkaline Phosphatase 70 U/L (45-117); Anion Gap 6 (5-15); BUN 20 mg/dL (7-18); BUN/Creat Ratio 16.7 RATIO (10-20); Calcium,Total 8.9 mg/dL (8.5-10.1); Chloride 106 mmol/L (98-107); Cholesterol 232 mg/dL (200); EST Glomerular Filtration Rate 62 mL/min (>60); Est Glom Filt Rate - Afr Amer 74 mL/min (>60); Glucose 106 mg/dL (74-106); High Density Lipoprotein 44 mg/dL; Potassium 4.7 mmol/L (3.5-5.1); Protein, Total 7.6 g/dL (6.4-8.2); Sodium Level 140 mmol/L (136-145); Triglycerides 165 mg/dL; Very Low Density Lipoprotein 33 mg/dL (5-40)
[2022-07-15 12:45] LABS: Hemoglobin A1c 5.8 % (3.8-5.6)
== END | disposition home or self-care (01) ==
LOC: BFHLAB 10:30
PROVIDERS: PCP Family Medicine; Visit Provider Family Medicine
DX: I10 Essential (primary) hypertension (principal); E78.5 Hyperlipidemia, unspecified; R73.01 Impaired fasting glucose; E55.9 Vitamin D deficiency, unspecified
CPT/HCPCS: 36415; 80053; 80061; 82306; 83036; 85025

== ENCOUNTER → 2022-09-06 | Outpatient (CLI) | payer MEDICARE, SELFPAY | END | disposition home or self-care (01) | PROVIDERS: PCP Family Medicine; Visit Provider Urology | DX: N40.1 Benign prostatic hyperplasia with lower urinary tract symptoms (principal) | CPT/HCPCS: 36415; 84153 ==

== ENCOUNTER → 2022-09-30 | Outpatient (CLI) | payer MEDICARE, SELFPAY ==
--- NOTE | 2022-09-30 | PROSBIL_PTH ---
PATIENT: ROVERTO CALLEJAS LOC: [facility] U#:[id number] AGE/SX: 81/M ROOM: RE09/30/[address]: Dr. Ankit Ashley MD : 1940 BED: DIS: 09/30/2022 SPEC #: [id number] RECD: 10/01/22 10:40 STATUS: SAFIA REQ #: [id number] BERT: 09/30/22 00:[address]: Ankit Ashley DEPT: SURGICAL PATHOLOGY RECD BY: Facundo Zepeda ENTERED: 10/01/22 10:40 SP TYPE: PROST BX LAKSHMI DR: Dr. Osman Perera DO Tissues: A - PROSTATE RIGHT B - PROSTATE RIGHT C - PROSTATE RIGHT D - PROSTATE LEFT E - PROSTATE LEFT F - PROSTATE LEFT Procedures: PROSTATE BX HEADER OPERATION: Prostate biopsy PRE-OP DIAGNOSIS: Elevated PSA TISSUE SUBMITTED: A - Right apex, B - Right mid, C - Right base, D - Left apex, E - Left mid, F - Left base MICROSCOPIC DIAGNOSIS A. Right prostate, apex, core biopsy: Prostatic adenocarcinoma. Chad grade: 3+4=7 Number of cores involved: 1/1 Proportion of tissue involved: ~20% Perineural invasion: Not identified. Greatest tumor length: 0.7 cm, discontinuous. Chronic inflammation. See comment. B. Right prostate, mid, core biopsy: Prostatic adenocarcinoma. Brandon grade: 4+3=7 Number of cores involved: 1/1 Proportion of tissue involved: 100% Perineural invasion: Not identified. Greatest tumor length: 1.3 cm Focal high-grade prostatic intraepithelial neoplasia (HGPIN). C. Right prostate, base, core biopsy: Prostatic adenocarcinoma. Chad grade: 3+4=7 Number of cores involved: 1/1 Proportion of tissue involved: ~80% Perineural invasion: Not identified. Greatest tumor length: 1 cm D. Left prostate, apex, core biopsy: Prostatic adenocarcinoma. Chad grade: 3+4=7 Number of cores involved: 1/1 Proportion of tissue involved: 70% Perineural invasion: Present, focal. Greatest tumor length: 0.5 cm E. Left prostate, mid, core biopsy: Prostatic tissue, negative for malignancy. F. Left prostate, base, core biopsy: Prostatic tissue, negative for malignancy. Focal basal cell hyperplasia. SJ:harris 10/04/2022 COMMENT A. Immunohistochemistry ([id number]) supports the above diagnosis. This case has been reviewed in consultation with Dr. Andrade who concurs with the above diagnosis. MICROSCOPIC DESCRIPTION Slides are reviewed. GROSS DESCRIPTION A - Received is one container designated prostate, right apex. The specimen consists of one elongated fragment of light fontana-white soft tissue measuring 1.5 cm in length and 0.1 cm in diameter. The specimen is totally submitted in one cassette. B - Received is one container designated prostate, right mid. The specimen consists of one elongated fragment of light fontana-white soft tissue measuring 1.5 cm in length and 0.1 cm in diameter. The specimen is totally submitted in one cassette. C - Received is one container designated prostate, right base. The specimen consists of one elongated fragment of light fontana-white soft tissue measuring 1.5 cm in length and 0.1 cm in diameter. The specimen is totally submitted in one cassette. D - Received is one container designated prostate, left apex. The specimen consists of one elongated fragments of light fontana-white soft tissue measuring 0.8 cm in length and 0.1 cm in diameter. The specimen is totally submitted in one cassette. E - Received is one container designated prostate, left mid. The specimen consists of one elongated fragments of light fontana-white soft tissue measuring 1.6 cm in length and 0.1 cm in diameter. The specimen is totally submitted in one cassette. F - Received is one container designated prostate, left base. The specimen consists of one elongated fragment of light fontana-white soft tissue measuring 1.5 cm in length and 0.1 cm in diameter. The specimen is totally submitted in one cassette. / SJ:rg 10/01/2022 TC:0 [facility]: [id number]
--- NOTE | 2022-09-30 | IMM_PTH ---
PATIENT: ROVERTO CALLEJAS LOC: [facility] U#:[id number] AGE/SX: 81/M ROOM: RE09/30/[address]: Dr. Ankit Ashley MD : 1940 BED: DIS: 09/30/2022 SPEC #: [id number] RECD: 10/04/22 14:45 STATUS: SOURomario REQ #: [id number] BERT: 09/30/22 00:[address]: Ankit Ashley DEPT: IMMUNOHISTOCHEMISTRY RECD BY: Zenia Andrade ENTERED: 10/04/22 14:46 SP TYPE: IMMUNO OTHR DR: Dr. Osman Perera, Tissues: A - PROSTATE RIGHT Procedures: P40 (add) 34BE12 (initial) PHYSICIAN & INSTITUTION [place] [id number] SPECIMEN INFORMATION: Tissue Source: A - Right prostate, apex, core biopsy Clinical Info: Elevated PSA Specimen Number: [id number] CPT code: 18754, 31866 METHODOLOGY: Deparaffinized sections of prefer/formalin-fixed tissue or PAP/DQ stained slides are incubated with monoclonal/polyclonal antibodies/oligonucleotide probes. Localization is made via biotin free immunoperoxidase method. Appropriate controls are performed and reacted as expected. Results on target cell population are indicated in the following table: RESULTS: ANTIBODY / CLONE RESULT Block A P40 (BC28) negative 34BE12 (34BE12) negative These tests were developed and their performance characteristics determined by [facility]. They may not have been cleared or approved by the U.S. Food and Drug Administration. The FDA has determined that such clearance or approval is not necessary. The above immunohistochemical/dualISH markers are ordered and reviewed by the Pathologist. INTERPRETATION: A. Right prostate, apex, core biopsy: Adenocarcinoma. FANNIE:harris 10/05/2022
== END | disposition home or self-care (01) ==
LOC: LABSPEC 16:54
PROVIDERS: PCP Family Medicine; Visit Provider Urology
DX: R97.20 Elevated prostate specific antigen [PSA] (principal)
CPT/HCPCS: 88305; 88341; 88342; G0416

== ENCOUNTER → 2022-10-20 | Outpatient (CLI) | payer MEDICARE, SELFPAY ==
--- NOTE | 2022-10-20 09:37 | NM_ITS ---
CLINICAL: 81-year-old male with history of primary prostate carcinoma. WHOLE BODY 99m Tc MDP RADIONUCLIDE BONE SCINTIGRAPHY COMPARISON: None available FINDINGS: Following the intravenous administration of 26.8 mCi of 99m Tc MDP, whole body bone images reveal: 1. Increased radiopharmaceutical concentration is defined in the acromioclavicular compartments of both shoulders, sternoclavicular compartment of the right shoulder, the right wrist and hand, the knees bilaterally, the left ankle and right midfoot. 2. The remaining skeletal structures are scintigraphically unremarkable with normal-appearing renal images and urinary bladder activity identified. Enhanced uptake is noted in the left mandible consistent with periodontal disease and/or periostitis. NM/Bone Scan Whole Body IMPRESSION: 1. The increase in radiopharmaceutical concentration identified in the bilateral shoulders, right wrist and hand, the bilateral knees, the left ankle and right midfoot is consistent with degenerative arthritis. 2. There is no scintigraphic evidence of diffuse axial skeletal metastatic disease on the current examination. Electronically Signed: Ham Hess, at 14:31 EST ,
== END | disposition home or self-care (01) ==
LOC: NM 09:32
PROVIDERS: PCP Family Medicine; Referring Provider Urology; Visit Provider Urology
DX: C61 Malignant neoplasm of prostate (principal)
CPT/HCPCS: 78306; A9503

== ENCOUNTER → 2022-10-25 | Outpatient (CLI) | payer MEDICARE, SELFPAY ==
--- NOTE | 2022-10-25 18:30 | CT_ITS ---
STUDY: CT ABDOMEN AND PELVIS WITH CONTRAST REASON FOR EXAM: Male, 81 years old. NEOPLASM OF PROSTATE RADIATION DOSAGE (If Supplied By Facility): CTDIvol = ( 16.26 ) mGy, DLP = ( 1202.19 ) mGycm TECHNIQUE: Transaxial images were obtained from the dome of the diaphragm to the symphysis pubis without oral contrast. IV 100mL Isovue-370 was administered. Sagittal and coronal images were reconstructed. Individualized dose optimization techniques were used for this CT. COMPARISON: None. FINDINGS: There is minor interstitial thickening at the lung bases. There is a small calcified granuloma in the right lower lobe. The heart size is normal. There is minor coronary artery calcification Liver is normal in size. There is a small cyst in each lobe. Bile ducts are nondilated. Normal gallbladder and extrahepatic biliary system. Normal spleen. Mildly fatty infiltrated pancreas. Normal bilateral adrenal glands. Tiny nonobstructing right renal calculus. No evidence for obstruction or mass. Tiny lipomatous density in the lower pole of left kidney Normal visualized stomach. Normal small intestine. Mild diverticular changes of the colon without evidence for acute diverticulitis. Postsurgical changes of the ascending colon and prior appendectomy. Atherosclerotic changes of the aorta without evidence for aneurysm. Normal inferior vena cava. Normal retroperitoneum. Poorly distended thick walled bladder.. Mild nonspecific enlargement of prostate Small fat-containing left inguinal hernia.. Lumbar spine demonstrates mild degenerative change. Interosseous hemangioma of the the L3 vertebral body CT/Abdomen/Pelvis W IV Cont ONLY IMPRESSION: Benign hepatic cysts. Tiny nonobstructing right renal calculus. Diverticular changes of the colon without evidence for acute diverticulitis No evidence for hepatic metastasis retroperitoneal adenopathy or metastasis secondary to known prostate malignancy Electronically Signed: Dominic Carvalho MD at 22:35 EST ,
[2022-10-25 19:10] LABS: CREATININE FINGERSTICK 1.1 mg/dL (0.70-1.30)
== END | disposition home or self-care (01) ==
PROVIDERS: PCP Family Medicine; Visit Provider Urology
DX: I25.10 Atherosclerotic heart disease of native coronary artery without angina pectoris (principal); I70.0 Atherosclerosis of aorta; C61 Malignant neoplasm of prostate; N20.0 Calculus of kidney; K40.90 Unilateral inguinal hernia, without obstruction or gangrene, not specified as recurrent; K57.30 Diverticulosis of large intestine without perforation or abscess without bleeding; K76.89 Other specified diseases of liver; D18.09 Hemangioma of other sites
CPT/HCPCS: 74177; Q9967

== ENCOUNTER 2022-12-01 09:59 | Day surgery (SDC) | payer MEDICARE, SELFPAY ==
--- NOTE | 2022-12-01 10:30 | PCM.HP.STD ---
HPI - General General Date of Admission: 12/01/22 HPI Narrative ROVERTO CALLEJAS, is a 82 M who presents with prostate cancer who we plan to proceed today with placement of gold markers and spacer at risk organ gel matrix PFSH Medical History (Updated 11/25/22 @ 11:18 by Mary Anne Daniel) Acute cystitis with hematuria Alcohol use Arthritis Benign prostatic hyperplasia with lower urinary tract symptoms Cancer Elevated PSA Erectile dysfunction Essential hypertension Gross hematuria Hearing loss Heartburn Hyperlipidemia Leg cramps Malignant neoplasm of prostate Nodular prostate without lower urinary tract symptoms Non-smoker Retention of urine Urinary calculi Vitamin D deficiency Wears glasses Wears partial dentures Home Medications amlodipine 10 mg tablet 10 mg PO QDAY BP 09/06/17 [History Last Taken 05/08/18 10 MG] atorvastatin 20 mg tablet 20 mg PO QDAY CHOLESTEROL 09/06/17 [History Last Taken Unknown] finasteride 5 mg tablet 5 mg PO QDAY PROSTATE 09/06/17 [History Last Taken Unknown] cholecalciferol (vitamin D3) 25 mcg (1,000 unit) capsule (Vitamin D3) 1,000 unit PO DAILY SUPPLEMENT 05/02/18 [History Last Taken Unknown] multivitamin (Multiple Vitamins tablet) 1 ea PO DAILY SUPPLEMENT 05/02/18 [History Last Taken Unknown] ibuprofen 400 mg tablet 400 mg PO Q4H PRN PRN Mild Pain (1-310) 05/11/18 [Rx Last Taken Unknown] Allergy/AdvReac Type Severity Reaction Status Date / Time penicillin V Allergy Mild rash Verified 11/25/22 11:10 hydromorphone [From Dilaudid] Allergy Other Verified 11/25/22 11:10 Family History Father Myocardial infarction Sister Colon cancer Surgical History (Updated 11/25/22 @ 11:18 by Mary Anne Daniel) History of arthroscopy of right shoulder S/P colon resection S/P cystourethroscopy with dilation of urethral stricture s/p kidney stones Social History Smoking Status: Never smoker alcohol intake: current alcohol intake frequency: a few times a month
--- NOTE | 2022-12-01 10:31 | DCINST_ITS ---
Discharge Instructions Diet Discharge Diet: No restrictions Activity Discharge Activity: Return to Normal Activity Follow Up Care Please Follow Up With: Ankit Ashley MD When: keep appt. Test Results: Test results from this visit will be discussed in further detail at your follow- up appointment, if applicable. Discharge Plan Admission Primary Reason for Your Visit: Placement of markers and spacer gel for prostate cancer treatment Attending Provider: Ankit Ashley Primary Care Provider: Osman Perera Discharge Orders/Prescriptions Prescriptions: Continued finasteride 5 mg tablet 5 mg PO QDAY atorvastatin 20 mg tablet 20 mg PO QDAY amlodipine 10 mg tablet 10 mg PO QDAY multivitamin [Multiple Vitamins] 1 EACH tablet 1 ea PO DAILY cholecalciferol (vitamin D3) [Vitamin D3] 1,000 UNIT capsule 1,000 unit PO DAILY ibuprofen 400 MG tablet 400 mg PO Q4H PRN PRN (Reason: Mild Pain (-12/03)) 0RF Referrals / Follow Up: Ankit Ashley MD [Med Staff - Active Staff] - Osman Perera DO [Primary Care Provider] - Disposition Disposition (needs filled in before D/C Order can be placed): Home, Self Care
[2022-12-01 10:36] VITALS: BP 150/88; PULSE 82; RESP 17; TEMP 36.6; O2SAT 96; BMI 28.8
[2022-12-01] MEDS: Lactated Ringers 1,000 ML 15 ML IV (10:36)
--- NOTE | 2022-12-01 11:30 | PCM.OPRPT ---
Report of Operation Date of Procedure: 12/01/22 Pre-Operative Diagnosis: Prostate cancer Post-Operative Diagnosis: The same Surgery/Procedure Performed:: Placement of gold markers, placement of spacer organ at risk gel matrix Description of Surgical Findings:: The penis and testicles were prepped and draped in usual sterile fashion, ultrasound probe was placed into the rectum and biplanar ultrasound was performed on the prostate. Identified the base mid and apex of the prostate identified the transition zone prostate. Then using a needle the first oncology rep was placed into the right base of the prostate, the second oncology rep was placed in the left base of the prostate, and the third core marker was placed in the right apex of the prostate after all 3 markers were placed the placement of the markers were confirmed by ultrasonography. I then introduced a biplanar ultrasound probe into the rectum and performed ultrasonography and identified the Denonvilliers' fascia the prostate mid base and apex and seminal vesicles. The spacer gel mix was then prepared on the back table per manufactures instruction. Under ultrasound guidance in the midline perineum a bevel needle down we advanced through the perineum below the prostate into the space of Denonvilliers' fascia. This space which could be identified by ultrasound with a bright white layer between the prostate and the rectum. I then injected a puff of normal saline to identify the space further. After I confirmed that the needle was in the correct space in the mid prostate and the space of Denonvilliers' fascia between the rectum and the prostate. Then over the course of 15 seconds the gel matrix was injected slowly there was nice separation between the prostate and the rectum at the gel matrix was injected. The position of the gel matrix was confirmed by ultrasound. Then the injection needle was removed intact. Patient's perineum was cleaned patient was taken out of stirrups and then taken back to the PACU in good condition. Surgeon: Ankit Ashley Type of Anesthesia: General Admit VTE Documentation VTE Present on Admission: No VTE Mechan Device Prophylaxis: SCD's VTE Pharm Prophylaxis ordered?: No
[2022-12-01 11:36] VITALS: BP 114/69; BP 150/88; PULSE 64; RESP 16; TEMP 36.6; O2SAT 94
--- NOTE | 2022-12-01 11:37 | SUR.PHASEI ---
Per Farida, MOTION PICTURE OPERATOR said abx was not given due to pt is on cipro at home.
[2022-12-01 11:45] VITALS: BP 110/70; BP 150/88; PULSE 67; RESP 16; O2SAT 92
[2022-12-01 12:00] VITALS: BP 113/65; BP 150/88; PULSE 66; RESP 16; O2SAT 95
[2022-12-01 12:15] VITALS: BP 139/69; BP 150/88; PULSE 61; RESP 16; TEMP 36.6; O2SAT 98
[2022-12-01 12:45] VITALS: BP 150/88
== END 2022-12-01 12:59 | disposition home or self-care (01) ==
LOC: SDC 10:07 → AC 10:09
PROVIDERS: PCP Family Medicine; Referring Provider Urology; Visit Provider Urology
PROC: (CPT 55874; principal; 2022-12-01 11:55)
DX: C61 Malignant neoplasm of prostate (principal); I10 Essential (primary) hypertension; E78.5 Hyperlipidemia, unspecified; Z80.0 Family history of malignant neoplasm of digestive organs; Z86.16 Personal history of COVID-19; N40.1 Benign prostatic hyperplasia with lower urinary tract symptoms; R33.9 Retention of urine, unspecified
CPT/HCPCS: 55876; 00400; J7120; J2405

== ENCOUNTER → 2022-12-09 | Outpatient (CLI) | payer MEDICARE, SELFPAY ==
--- NOTE | 2022-12-09 10:36 | MRI_ITS ---
STUDY: MR PELVIS WITH T WITHOUT CONTRAST REASON FOR EXAM: Male, 82 years old. eval disease, int risk prost cancer, getting XRT TECHNIQUE: Standardized fat and water weighted pulse sequences were obtained in all 3 orthogonal planes, pre-and post contrast administration. IV 18ML CLARISCAN was administered for the contrast portion of the examination. COMPARISON: None. FINDINGS: Normal urinary bladder. Normal visualized small intestine. Normal visualized colon. There is T2 bright fluid between the rectum and prostate, likely postprocedural. The prostate is heterogeneous. No periprostatic mass or adenopathy. Scattered areas of T1 bright signal intensity involving the left more than right posterior mid prostate seen on image 34 of series 5 likely related to recent biopsy. There is no pelvic fluid. There is no pelvic mass lesion or lymphadenopathy. Normal visualized pelvic arteries. Normal osseous structures. Normal abdominal wall. MRI/Pelvis W/WO Contrast IMPRESSION: 1. No extraprostatic mass or pelvic adenopathy. 2. Postbiopsy changes/blood products of the left more than right posterior mid prostate. 3. T2 hyperintensity between the rectum and prostate, likely postprocedural. Electronically Signed: Daniel Huber (Brooks), at 10:38 EDT Reading Location ID and State: / [place] , Service support ,
[2022-12-09 11:10] LABS: CREATININE FINGERSTICK < 0.9 mg/dL (0.70-1.30); EGFR FINGERSTICK > 60.0000 mL/min (>60)
== END | disposition home or self-care (01) ==
PROVIDERS: PCP Family Medicine; Visit Provider Student in an Organized Health Care Education/Training Program
DX: C61 Malignant neoplasm of prostate (principal)
CPT/HCPCS: 72197; 77014; 77290; A9575; A4216

== ENCOUNTER → 2023-01-31 | Outpatient (CLI) | payer MEDICARE, SELFPAY ==
[2023-01-31 17:11] LABS: PSA,Total- Diagnostic 0.04 ng/mL (0.0-4.0)
== END | disposition home or self-care (01) ==
LOC: LAB 16:19
PROVIDERS: PCP Family Medicine; Referring Provider Registered Nurse; Visit Provider Registered Nurse
DX: C61 Malignant neoplasm of prostate (principal)
CPT/HCPCS: 36415; 84153

== ENCOUNTER → 2023-05-12 | Outpatient (CLI) | payer MEDICARE, SELFPAY ==
[2023-05-12 14:38] LABS: PSA,Total- Diagnostic < 0.01 ng/mL (0.0-4.0)
== END | disposition home or self-care (01) ==
LOC: LAB 13:22
PROVIDERS: PCP Family Medicine; Referring Provider Registered Nurse; Visit Provider Registered Nurse
DX: C61 Malignant neoplasm of prostate (principal); R97.20 Elevated prostate specific antigen [PSA]
CPT/HCPCS: 36415; 84153

== ENCOUNTER → 2023-07-13 | Outpatient (CLI) | payer MEDICARE, SELFPAY ==
[2023-07-13 12:40] LABS: Absolute Lymphocyte Count 0.66 X10^3/uL (0.83-4.51); Absolute Neutrophil Count 3.3 X10^3/uL (2.0-7.7); Basophil# 0.04 X10^3/uL; Basophil% 0.9 % (0-1); Eosinophil# 0.17 X10^3/uL; Eosinophils% 3.7 % (0-5); Hematocrit 40.3 % (40-54); Hemoglobin 13.2 g/dL (13.0-16.5); Lymphocyte # 0.66 X10^3/ul (0.83-4.51); Lymphocyte % 14.2 % (19-41); Mean Corp Hgb Conc 32.8 g/dL (32-36); Mean Corpuscular Hgb 32.3 pg (27.0-32.0); Mean Corpuscular Volume 98.5 fL (80-94); Mean Platelet Vol. 10.6 fl (6.2-12.0); Monocyte# 0.49 X10^3/uL; Monocyte% 10.5 % (0-10); NRBC Flagged by Analyzer 0 % (0-5); Neutrophil # 3.28 X10^3/uL (2.7-7.7); Neutrophil % 70.5 % (47-70); Platelet Count 182 K/mm3 (150-450); RBC Distribution Width CV 12.9 % (11.6-14.6); RBC Distribution Width SD 46.2 fl (35.1-43.9); Red Blood Count 4.09 M/mm3 (4.6-6.2); White Blood Count 4.7 K/mm3 (4.4-11.0)
[2023-07-13 13:08] LABS: Vitamin D,25 Hydroxy 39.7 ng/mL
[2023-07-13 13:47] LABS: ALB/GLOB Ratio 0.8 RATIO (0.9-2.4); AST(SGOT) 21 U/L (15-37); Alanine Aminotransfer ALT/SGPT 39 U/L (16-61); Albumin, Serum 3.4 g/dL (3.2-5.0); Alkaline Phosphatase 71 U/L (45-117); Anion Gap 6 (5-15); BUN 19 mg/dL (7-18); BUN/Creat Ratio 17.6 RATIO (10-20); Calcium,Total 9.3 mg/dL (8.5-10.1); Chloride 107 mmol/L (98-107); Cholesterol 162 mg/dL (200); Creatinine, Serum 1.08 mg/dL (0.70-1.30); EST Glomerular Filtration Rate 69 mL/min (>60); Est Glom Filt Rate - Afr Amer 84 mL/min (>60); Glucose 125 mg/dL (74-106); High Density Lipoprotein 47 mg/dL; Potassium 4.1 mmol/L (3.5-5.1); Protein, Total 7.4 g/dL (6.4-8.2); Sodium Level 141 mmol/L (136-145); Triglycerides 150 mg/dL; Very Low Density Lipoprotein 30 mg/dL (5-40)
[2023-07-13 18:08] LABS: Hemoglobin A1c 5.8 % (3.8-5.6)
== END | disposition home or self-care (01) ==
LOC: BFHLAB 09:10
PROVIDERS: PCP Family Medicine; Visit Provider Family Medicine
DX: I10 Essential (primary) hypertension (principal); E78.5 Hyperlipidemia, unspecified; R73.01 Impaired fasting glucose; E55.9 Vitamin D deficiency, unspecified
CPT/HCPCS: 36415; 80053; 80061; 82306; 83036; 85025

== ENCOUNTER → 2023-08-22 | Outpatient (CLI) | payer MEDICARE, SELFPAY ==
[2023-08-22 11:29] LABS: PSA,Total- Diagnostic < 0.01 ng/mL (0.0-4.0)
== END | disposition home or self-care (01) ==
LOC: LAB 09:40
PROVIDERS: PCP Family Medicine; Referring Provider Urology; Visit Provider Urology
DX: R97.20 Elevated prostate specific antigen [PSA] (principal)
CPT/HCPCS: 36415; 84153

== ENCOUNTER → 2023-11-22 | Outpatient (CLI) | payer MEDICARE, SELFPAY ==
[2023-11-22 16:00] LABS: PSA,Total- Diagnostic < 0.01 ng/mL (0.0-4.0)
--- OUTSIDE RECORDS SUMMARY | 2023-11-22 20:28 | XMS RPT_ITS | CCD ---
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 Name Role Phone Nicaantoni Shaye Ortiz Unavailable [phone] Natalya Ceron Unavailable David Perera DO Primary Care Provider HAM DEL CID Attending Unavailable DAVID PERERA Primary Care Unavailable HAM DEL CID Referring Unavailable HAM DEL CID Attending Unavailable DAVID PERERA Primary Care Unavailable Allergies Allergy Classification Reported Allergen(s) Allergy Type Date of Onset Reaction(s) Facility (6 sources) penicillin v Drug Allergy 02-03-2016 [facility] Work Phone: (5 sources) Penicillins; Translations: [PENICILLINS] Drug Allergy 03-03-2017 Intolerance [facility] Work Phone: Medications Completed/Discontinued Medications Medication Drug Class(es) Dates Sig (Normalized) Sig (Original) amLODIPine 10 mg oral tablet (10 sources) Dihydropyridine Calcium Channel Tameka Start: 02-03-2016 take 1 tablet by mouth once daily AMLODIPINE BESYLATE 10 MG TABS One tablet by mouth daily AMLODIPINE BESYLATE [id number] David Perera DO Problems Active Problems Problem Classification Problem Date Documented Date Episodic/Chronic Disorders of lipid metabolism (6 sources) Hyperlipidemia; Translations: [Hyperlipidemia, unspecified] Onset: 02-03-2016 02-03-2016 Chronic Essential hypertension (6 sources) Hypertensive disorder; Translations: [Essential (primary) hypertension] Onset: 02-03-2016 02-03-2016 Chronic Hyperplasia of prostate (6 sources) Benign prostatic hyperplasia; Translations: [Benign prostatic hyperplasia without lower urinary tract symptoms] Onset: 02-03-2016 02-03-2016 Chronic Osteoarthritis (5 sources) Osteoarthritis of knee; Translations: [Osteoarthritis of knee, unspecified] Onset: 08-09-2017 08-09-2017 Chronic Other and unspecified benign neoplasm (3 sources) Adenomatous polyp of colon ; Translations: [Benign neoplasm of colon, unspecified] Episodic Unclassified (6 sources) Screening for malignant neoplasm of prostate ; Translations: [Encounter for screening for malignant neoplasm of prostate] Onset: 02-03-2016 02-03-2016 Past or Other Problems Problem Classification Problem Date Documented Da te Episodic/Chronic Diabetes mellitus without complication (6 sources) Impaired fasting glycaemia; Translations: [Impaired fasting glucose] Onset: 02-03-2016 02-03-2016 Episodic Other and unspecified benign neoplasm (1 source) Benign neoplasm of colon, unspecified; Translations: [Adenomatous polyp of colon, unspecified part of colon] Onset: 12-14-2022 Episodic Other connective tissue disease (5 sources) Swelling of lower limb; Translations: [Other specified soft tissue disorders] Onset: 08-09-2017 08-09-2017 Episodic Other non-traumatic joint disorders (5 sources) Knee pain; Translations: [Pain in left knee] Onset: 08-09-2017 08-09-2017 Episodic Other screening for suspected conditions (not mental disorders or infectious disease) (2 sources) Patient encounter status; Translations: [Encounter for screening for malignant neoplasm of colon] Onset: 12-14-2022 12-14-2022 Episodic Results Test Name Value Interpretation Reference Range Facil ity Vital Signs Date Time Vital Sign Value Performing Clinician Facility 10-18-2023 13:10-0500 Body height 177.8 cm Ham Del Cid MD Work Phone: [facility] 10-18-2023 13:10-0500 Body temperature 97.11 [degF] Ham Del Cid MD Work Phone: [facility] 10-18-2023 13:10-0500 Body weight 92.53 kg Ham Del Cid MD Work Phone: [facility] 10-18-2023 13:10-0500 Diastolic blood pressure 78 mm[Hg] Ham Del Cid MD Work Phone: [facility] 10-18-2023 13:10-0500 Heart rate 90 /min Ham Del Cid MD Work Phone: [facility] 10-18-2023 13:10-0500 SaO2% (BldA) [Mass fraction] 96 % Ham Del Cid MD Work Phone: [facility] 10-18-2023 13:10-0500 Systolic blood pressure 142 mm[Hg] Ham Del Cid MD Work Phone: [facility] 12-14-2022 12:18-0400 Heart rate 62 /min Ham Del Cid MD Work Phone: [facility] 12-14-2022 12:18-0400 Respiratory rate 16 /min Ham Del Cid MD Work Phone: [facility] 12-14-2022 12:18-0400 SaO2% (BldA) [Mass fraction] 93 % Ham Del Cid MD Work Phone: [facility] 12-14-2022 12:08-0400 Diastolic blood pressure 80 mm[Hg] Ham Del Cid MD Work Phone: [facility] 12-14-2022 12:08-0400 Systolic blood pressure 138 mm[Hg] Ham Del Cid MD Work Phone: [facility] 12-14-2022 10:21-0400 Body temperature 96.91 [degF] Ham Del Cid MD Work Phone: [facility] 12-14-2022 10:21-0400 Body weight 90.8 kg Ham Del Cid MD Work Phone: [facility] 10-21-2022 08:57-0500 Body height 177.8 cm Ham Del Cid MD Work Phone: [facility] 10-21-2022 08:57-0500 Body temperature 97.59 [degF] Ham Del Cid MD Work Phone: [facility] 10-21-2022 08:57-0500 Body weight 90.81 kg Ham Del Cid MD Work Phone: [facility] 10-21-2022 08:57-0500 Diastolic blood pressure 74 mm[Hg] Ham Del Cid MD Work Phone: [facility] 10-21-2022 08:57-0500 Heart rate 80 /min Ham Del Cid MD Work Phone: [facility] 10-21-2022 08:57-0500 SaO2% (BldA) [Mass fraction] 97 % Ham Del Cid MD Work Phone: [facility] 10-21-2022 08:57-0500 Systolic blood pressure 132 mm[Hg] Ham Del Cid MD Work Phone: [facility] 08-09-2017 15:26-0500 BMI (Body Mass Index) 28.89 kg/m2 [facility] Work Phone: 08-09-2017 15:26-0500 Weight 86.18 kg [facility] Work Phone: 02-03-2016 13:17-0400 BMI (Body Mass Index) 30.62 kg/m2 [facility] Work Phone: 02-03-2016 13:17-0400 Body Temperature 97.9 [degF] [facility] Work Phone: 02-03-2016 13:17-0400 BP Diastolic 78 mm[Hg] [facility] Work Phone: 02-03-2016 13:17-0400 BP Systolic 122 mm[Hg] [facility] Work Phone: 02-03-2016 13:17-0400 BSA (Body Surface Area) 2.05 m2 [facility] Work Phone: 02-03-2016 13:17-0400 Height 172.72 cm [facility] Work Phone: 02-03-2016 13:17-0400 Pulse (Heart Rate) 66 /min [facility]ya [facility] Work Phone: 02-03-2016 13:17-0400 Respiratory Rate 14 /min Natalya COLE[facility] Work Phone: 02-03-2016 13:17-0400 Weight 91.36 kg [facility] Work Phone: Encounters Encounter Date Encounter Type Care Provider Facility Start: 10-18-2023 End: 10-18-2023 ambulatory HAM DEL CID Facility:[facility] Start: 10-18-2023 End: 10-18-2023 Patient encounter procedure Ham Del Cid MD Work Phone: General Surgery Procedures Date Procedure Procedure Detail Performing Clinician Start: 12-14-2022 Level iv surg pathol ogy gross&microscopic exam Ham Del Cid MD Work Phone: Start: 12-14-2022 Colonoscopy flx dx w /collj spec when pfrmd Ham Del Cid MD Work Phone: Start: 12-14-2022 Colonoscopy Ham dumont MD Work Phone: Start: 08-09-2017 End: 08-10-2017 *BFRW - Body Fluid RBC, WBC & DIFF Shaye Turcios Work Phone: Start: 08-09-2017 End: 08-10-2017 Arthrocentesis aspir&/inj major jt/bursa w/o us Shaye Turcios Work Phone: Start: 08-09-2017 End: 08-10-2017 Bacteria identified in Body fluid by Culture Shaye Turcios Work Phone: Start: 08-09-2017 End: 08-10-2017 Crystals [type] in Body fluid by Light microscopy Shaye Turcios Work Phone: Start: 08-09-2017 End: 08-10-2017 Dup-scan xtr veins complete bilateral study Shaye Turcios Work Phone: Start: 08-09-2017 End: 08-10-2017 Glucose [Mass/volume] in Body fluid Shaye Turcios Work Phone: Start: 08-09-2017 End: 08-10-2017 Protein [Mass/volume] in Body fluid Shaye Turcios Work Phone: Start: 08-09-2017 End: 08-10-2017 Radiologic exam knee complete 4/more views Shaye Turcios Work Phone: Start: 02-03-2016 End: 03-26-2016 *CMP Complete Metabolic Panel David Cole [facility] Phone: Start: 02-03-2016 End: 03-26-2016 *Microalbumin, Creatine Ratio, rand urine David Kelsey [facility] Phone: Start: 02-03-2016 End: 03-26-2016 Hemoglobin A1c/Hemoglobin.total in Blood [facility] Phone: Start: 02-03-2016 End: 03-26-2016 Lipid 1996 panel - Serum or Plasma David Keywee Phone: Start: 02-03-2016 End: 03-26-2016 Prostate specific Ag [Mass/volume] in Serum or Plasma [facility] Phone: Plan of Treatment Date Care Activity Detail Author Start: 12-15-2023 Colonoscopy Colonoscopy [facility] Start: 12-15-2023 Colorectal Cancer Screening Colorectal Cancer Screening [facility] Start: 12-15-2023 Screening for malignant neoplasm of colon [facility] Start: 09-26-2023 Advance Directive Discussion Advance Directive Discussion [facility] Start: 09-26-2023 Depression Assessment Depression Assessment [facility] Start: 05-27-2023 Covid-19 Vaccine () Covid-19 Vaccine () [facility] Start: 05-27-2023 Influenza vaccination [facility] Start: 09-26-2022 ADVANCE DIRECTIVE DISCUSSION ADVANCE DIRECTIVE DISCUSSION [facility] Start: 09-26-2022 DEPRESSION ASSESSMENT DEPRESSION ASSESSMENT [facility] Start: 09-21-2021 COVID-19 VACCINE (4 - Booster for Moderna series) COVID-19 VACCINE (4 - Booster for Moderna series) [facility] Start: 08-09-2017 End: 08-10-2017 *BFRW - Body Fluid RBC, WBC & DIFF *BFRW - Body Fluid RBC, WBC & DIFF [facility] Work Phone: Start: 08-09-2017 End: 08-10-2017 Bacteria identified in Body fluid by Culture *CUBF- Culture, Body Fluid [facility] Work Phone: Start: 08-09-2017 End: 08-10-2017 Crystals [type] in Body fluid by Light microscopy *THOMAS - Crystals, Body Fluid [facility] Work Phone: Start: 08-09-2017 End: 08-10-2017 Dup-scan xtr veins complete bilateral study Venous Doppler LE Left [facility] Work Phone: Start: 08-09-2017 End: 08-10-2017 Glucose [Mass/volume] in Body fluid *GLUBF - Glucose, Body Fluid [facility] Work Phone: Start: 08-09-2017 End: 08-10-2017 Protein in fluid *PROBF - Protein, Body Fluid [facility] Work Phone: Start: 08-09-2017 End: 08-10-2017 Radiologic exam knee complete 4/more views X-Ray, Knee [facility] Work Phone: Start: 08-04-2017 End: 08-04-2017 Appointment Appointment [facility] Work Phone: Start: 10-16-2016 Pneumococcal Vaccine: 65+ (2 - PPSV23 or PCV20) Pneumococcal Vaccine: 65+ (2 - PPSV23 or PCV20) [facility] Start: 10-16-2016 Pneumococcal Vaccine: 65+ (2 of 2 - PPSV23 or PCV20) Pneumococcal Vaccine: 65+ (2 of 2 - PPSV23 or PCV20) [facility] Start: 02-03-2016 End: 03-26-2016 *CMP Complete Metabolic Panel *CMP Complete Metabolic Panel [facility] pending [facility] Work Phone: Start: 02-03-2016 End: 03-26-2016 *Microalbumin, Creatine Ratio, rand urine *Microalbumin, Creatine Ratio, rand urine [facility] pending [facility] Work Phone: Start: 02-03-2016 End: 03-26-2016 Hemoglobin A1c/Hemoglobin.total mass fraction (Bld) *HgA1C [facility] Work Phone: Start: 02-03-2016 End: 03-26-2016 Lipid panel [AGGREGATE] *Lipid Profile [facility] Work Phone: Start: 02-03-2016 End: 03-26-2016 PSA *PSA (Prostate Specific Antigen) [facility] Work Phone: Start: 2004 PNEUMOCOCCAL: 65+ (1 - PCV) PNEUMOCOCCAL: 65+ (1 - PCV) [facility] Start: 1999 RSV Vaccine (1 - 1-dose 60+ series) RSV Vaccine (1 - 1-dose 60+ series) [facility] Start: 1989 SHINGRIX VACCINE (1 of 2) SHINGRIX VACCINE (1 of 2) [facility] Start: 1984 Cologuard (FIT-DNA) Cologuard (FIT-DNA) [facility] Start: [address] Colonography [facility] Start: 1984 DIABETES SCREEN DIABETES SCREEN [facility] Start: 1984 Diabetes Screening Diabetes Screening [facility] Start: 1984 Fecal Occult Blood Fecal Occult Blood [facility] Start: 1984 Screening for malignant neoplasm of colon [facility] Start: 1984 Sigmoidoscopy Sigmoidoscopy [facility] Start: 1958 Urine microalbumin profile [facility] End: 10-21-2023 Screening colonoscopy COLONOSCOPY SCREENING Endoscopy Routine Adenomatous polyp of colon, unspecified part of colon 1 Occurrences starting 10/21/2022 until 10/21/2023 [facility] Work Phone: Immunizations Immunization Date Immunization Notes Care Provider Fa cility 07-16-2022 influenza virus vacc ine, unspecified formulation Ham Del Cid MD Work Phone: [facility] Payers Date Payer Category Payer Medicare [employer] MEDICARE A ETNA MEDICARE PPO [id number] 2021-Present [phone] [address] [place] [address] PPO [id number] 2021 Medicare [id number] Social History Date Type Detail Facility Start: 05-18-2018 End: 12-14-2022 Tobacco smoking status NHIS Never smoked tobacco [facility] Start: 05-18-2018 End: 12-14-2022 Tobacco use and exposure Smokeless tobacco non-user [facility] Start: 10-21-2022 End: 10-18-2023 Alcohol intake Current drinker of alcohol (finding) [facility] Start: 03-03-2017 Alcohol Comment occ [facility] Start: 1940 Sex Assigned At Not on file [facility] Start: 09-02-2020 End: 12-14-2022 History of Social function [facility] Start: 09-02-2020 End: 12-14-2022 Tobacco use panel [facility] National Score (1-10 0), lower number is lower risk Not on file [facility] Clinical Notes 10-21-2022 to 10-20-2023 Ham Del Cid MD - 10/20/2023 11:44 AM ESTPatient InstructionsCheryl Marsh LPN - 10/18/2023 1:10 PM ESTTelephone Encounter - Ham Del Cid MD - 12/19/2022 7:14 AM EDTPatient Instructions Note Date & Type Note Facility 10-20-2023 Note HNO ID: [id number] Author: HAM DEL CID MD Service: ? Author Type: Physician Type: Progress Notes Filed: 10/20/2023 12:25 Note Text: HISTORY AND PHYSICAL Guanakito Callejas 1940 REFERRING PHYSICIAN: No ref. provider found CHIEF COMPLAINT: Consult (colonoscopy) HPI: The patient is a 82 year old male referred for endoscopy. Guanakito notes no current colon complaints The patient notes no history of upper GI complaints. Guanakito has undergone prior endoscopy. I performed colonoscopy on December 14, 2022. Impression: - Rectal mass. - Seven 8 to 16 mm polyps in the sigmoid colon, in the descending colon, in the transverse colon and in the ascending colon, removed with a cold snare. Resected and retrieved. Clip (MR conditional) was placed. - Diverticulosis in the entire examined colon. - The examination was otherwise normal on direct and retroflexion views. FINAL DIAGNOSIS A. Ascending colon polyp, polypectomy: - Sessile serrated polyp with conventional dysplasia. B. Transverse colon polyp x3, polypectomy: - Colonic mucosa with reactive change. - No evidence of adenomatous mucosa. - Multiple deeper sections are examined. C. Descending colon polyp, polypectomy: - Tubular adenoma with high-grade dysplasia. D. Sigmoid colon polyp x2, polypectomy: - Tubular adenoma with high-grade dysplasia. - Hyperplastic polyp. He has completed his treatment of radiation for his prostate cancer. He would like to hold his follow up colonoscopy until after January 08 due to the fact that the patient PAST MEDICAL HISTORY Diagnosis Date BPH (benign prostatic hyperplasia) Cancer (HCC) Colon polyps Coronary artery disease HTN (hypertension) Hypercholesteremia PAST SURGICAL HISTORY Procedure Laterality Date COLONOSCOPY 12/14/2022 repeat in 1 year COLONOSCOPY FLX DX W/COLLJ SPEC WHEN PFRMD 07/13/2019 Colonoscopy EYE SURGERY HX LAPAROSCOPY COLECTOMY PARTIAL W/ANASTOMOSIS 05/08/2018 lap right hemicolectomy [facility] ROTATOR CUFF REPAIR Current Outpatient Medications Medication Sig cholecalciferol, vitamin D3, (VITAMIN D3 ORAL) Take by mouth once daily. amLODIPine (NORVASC) 10 mg tablet Take 10 mg by mouth once daily. atorvastatin (LIPITOR) 20 mg tablet Take 20 mg by mouth once daily. multivitamin tablet Take 1 tablet by mouth once daily. finasteride (PROSCAR) 5 mg tablet Take 5 mg by mouth once daily. (Patient not taking: Reported on 10/18/2023) aspirin 81 mg chewable tablet Take 1 tablet by mouth once daily. (Patient not taking: Reported on 10/21/2022) No current facility-administered medications for this visit. ALLERGIES: Penicillins PERSONAL HISTORY: Social History Tobacco Use Smoking status: Never Smokeless tobacco: Never Vaping Use Vaping Use: Never used Substance Use Topics Alcohol use: Yes Comment: occ Drug use: Never FAMILY HISTORY: FAMILY HISTORY Problem Relation Age of Onset other (old age) Mother Heart Father Colon Cancer Sister REVIEW OF SYMPTOMS: The review of systems data was entered by the nurse and reviewed by me Nursing Notes: Cheryl MarshANDRY 10/18/2023 1:12 PM Signed REVIEW OF SYSTEMS: General: The patient denies fatigue, denies weight loss, notes weight gain, denies feeling hot, and denies feelings of cold. Eyes: The patient denies glaucoma, notes eye injury/surgery, wears glasses or contacts. Ear/Nose/Throat: The patient notes allergies, denies hayfever, denies ear infections, and denies bloody noses. Cardiovascular: The patient denies chest pain, denies heart disease, notes high blood pressure,denies cardiac stent, denies prior heart attack, denies irregular heart beat, notes high cholesterol, denies poor circulation, denies heart failure, other cardiac issues, denies claudication, denies cold feet, denies peripheral arterial stent. Respiratory: The patient denies tuberculosis, denies pneumonia, denies frequent cough, denies pulmonary embolism, denies shortness of breath, and denies coughing up blood. Gastrointestinal: The patient denies difficulty swallowing, notes acid reflux, denies ulcers, denies vomiting, denies jaundice/hepatitis, denies gallbladder problems, denies black or tarry stools, denies hemorrhoids, denies bleeding from rectum, denies diverticulitis, denies constipation, denies diarrhea, denies loss of stool control, and denies hernias. Kidney/Bladder: The patient notes kidney stones, denies urine infections, and denies bloody urine. Skin: The patient denies a history of skin cancer, denies bleeding/changing moles, and denies a history of skin rash. Neurologic: The patient denies a history of epilepsy/convulsions, denies headaches, denies head/spinal injuries, and denies stroke/TIA. Psychiatric: The patient denies psychiatric medications, denies depression, and denies voices, denies substance abuse. Endocrine: The patient denies thyroid disorders, denies diabetes, and denies hormon (more content not included)... [facility] 10-20-2023 History of Presen t illness Narrative HISTORY AND PHYSICAL Guanakito Callejas 1940 REFERRING PHYSICIAN: No ref. provider found CHIEF COMPLAINT: Consult (colonoscopy) HPI: The patient is a 82 year old male referred for endoscopy. Guanakito notes no current colon complaints The patient notes no history of upper GI complaints. Guanakito has undergone prior endoscopy. I performed colonoscopy on December 14, 2022. Impression: - Rectal mass. - Seven 8 to 16 mm polyps in the sigmoid colon, in the descending colon, in the transverse colon and in the ascending colon, removed with a cold snare. Resected and retrieved. Clip (MR conditional) was placed. - Diverticulosis in the entire examined colon. - The examination was otherwise normal on direct and retroflexion views. FINAL DIAGNOSIS A. Ascending colon polyp, polypectomy: - Sessile serrated polyp with conventional dysplasia. B. Transverse colon polyp x3, polypectomy: - Colonic mucosa with reactive change. - No evidence of adenomatous mucosa. - Multiple deeper sections are examined. C. Descending colon polyp, polypectomy: - Tubular adenoma with high-grade dysplasia. D. Sigmoid colon polyp x2, polypectomy: - Tubular adenoma with high-grade dysplasia. - Hyperplastic polyp. He has completed his treatment of radiation for his prostate cancer. He would like to hold his follow up colonoscopy until after January 08 due to the fact that the patient PAST MEDICAL HISTORY Diagnosis Date BPH (benign prostatic hyperplasia) Cancer (HCC) Colon polyps Coronary artery disease HTN (hypertension) Hypercholesteremia PAST SURGICAL HISTORY Procedure Laterality Date COLONOSCOPY 12/14/2022 repeat in 1 year COLONOSCOPY FLX DX W/COLLJ SPEC WHEN PFRMD 07/13/2019 Colonoscopy EYE SURGERY HX LAPAROSCOPY COLECTOMY PARTIAL W/ANASTOMOSIS 05/08/2018 lap right hemicolectomy [facility] ROTATOR CUFF REPAIR Current Outpatient Medications Medication Sig cholecalciferol, vitamin D3, (VITAMIN D3 ORAL) Take by mouth once daily. amLODIPine (NORVASC) 10 mg tablet Take 10 mg by mouth once daily. atorvastatin (LIPITOR) 20 mg tablet Take 20 mg by mouth once daily. multivitamin tablet Take 1 tablet by mouth once daily. finasteride (PROSCAR) 5 mg tablet Take 5 mg by mouth once daily. (Patient not taking: Reported on 10/18/2023) aspirin 81 mg chewable tablet Take 1 tablet by mouth once daily. (Patient not taking: Reported on 10/21/2022) No current facility-administered medications for this visit. ALLERGIES: Penicillins PERSONAL HISTORY: Social History Tobacco Use Smoking status: Never Smokeless tobacco: Never Vaping Use Vaping Use: Never used Substance Use Topics Alcohol use: Yes Comment: occ Drug use: Never FAMILY HISTORY: FAMILY HISTORY Problem Relation Age of Onset other (old age) Mother Heart Father Colon Cancer Sister REVIEW OF SYMPTOMS: The review of systems data was entered by the nurse and reviewed by ks Nursing Notes: SalmaCheryl watson LPN 10/18/2023 1:12 PM Signed REVIEW OF SYSTEMS: General: The patient denies fatigue, denies weight loss, notes weight gain, denies feeling hot, and denies feelings of cold. Eyes: The patient denies glaucoma, notes eye injury/surgery, wears glasses or contacts. Ear/Nose/Throat: The patient notes allergies, denies hayfever, denies ear infections, and denies bloody noses. Cardiovascular: The patient denies chest pain, denies heart disease, notes high blood pressure,denies cardiac stent, denies prior heart attack, denies irregular heart beat, notes high cholesterol, denies poor circulation, denies heart failure, other cardiac issues, denies claudication, denies cold feet, denies peripheral arterial stent. Respiratory: The patient denies tuberculosis, denies pneumonia, denies frequent cough, denies pulmonary embolism, denies shortness of breath, and denies coughing up blood. Gastrointestinal: The patient denies difficulty swallowing, notes acid reflux, denies ulcers, denies vomiting, denies jaundice/hepatitis, denies gallbladder problems, denies black or tarry stools, denies hemorrhoids, denies bleeding from rectum, denies diverticulitis, denies constipation, denies diarrhea, denies loss of stool control, and denies hernias. Kidney/Bladder: The patient notes kidney stones, denies urine infections, and denies bloody urine. Skin: The patient denies a history of skin cancer, denies bleeding/changing moles, and denies a history of skin rash. Neurologic: The patient denies a history of epilepsy/convulsions, denies headaches, denies head/spinal injuries, and denies stroke/TIA. Psychiatric: The patient denies psychiatric medications, denies depression, and denies voices, denies substance abuse. Endocrine: The patient denies thyroid disorders, denies diabetes, and denies hormonal problems. Hematologic: The patient denies a history of bruising, denies bleeding, and denies anemia, denies blood clots. Infections: The patient notes a history of measles and mumps, denies rheumatic fever, and denies sexually transmitted diseases. Musculoskeletal: The patient denies back pain/injury, denies back problems, denies sciatica, denies knee/foot trouble, notes arthritis, or denies gout. When was patient's last Mammogram screening? N/A Last Colonoscopy: 11/2022 Cheryl Marsh LPN PHYSICAL EXAMINATION: General: The patient is 82 year old male, well nourished, well hydrated in no acute distress. The patient is oriented to time, place, and person. VITALS: Blood pressure 142/78, pulse 90, temperature 36.2 C (97.1 F), height 177.8 cm (5' 10 ), weight 92.5 kg (204 lb), SpO2 96%. Body mass index is 29.27 kg/m . HEENT: Normal cephalic, ataumatic, pupils are equally round, sclera are anicteric, mucous membranes are moist, oropharynx is clear. Neck has no masses, asymmetry or lymphadenopathy. Thyroid is unremarkable. Respiratory: Clear to auscultation and percussion. Normal respiratory excursion and pattern. Cardiac: Examination is regular rate and rhythm. Abdominal exam: Soft, nontender, with no palpable masses. No hepatosplenomegaly. No palpable hernias. Rectal exam: exam deferred Extremities: no clubbing, cyanosis or edema. No adenopathy. Other: LABORATORY VALUES: As Noted RADIOLOGIC STUDIES: As Noted Assessment IMPRESSION: personal history of colon polyps - areas with high grade dysplasia PLAN: I plan to perform lower endoscopy. We discussed the risks and benefits of the planned endoscopy. I have informed the patient that complications can occur including failure to complete the endoscopy and perforation. The patient had the opportunity to ask questions concerning the planned endoscopy. My staff has also explained the procedure to the patient in understandable terms and has given the patient printed material concerning the procedure. The patient freely consents to surgery. I plan to use golytely bowel preparation for endoscopy Diagnoses: (D12.6) Adenomatous polyp of colon, unspecified part of colon (primary encounter diagnosis) A letter was sent to Dr. David Perera DO indicating the above finding for this patient. Return to Clinic: The patient is instructed to follow-up with me after the testing has been completed. Ham Del Cid MD documented in this encounter [facility] 10-18-2023 Instructions Ham Del Cid MD - 10/18/2023 1:30 PM EST Images from the original note were not included. Bowel Preparation Instructions for: Golytely, Nulytely, Trilyte or Colyte (polyethylene glycol 3350 and electrolytes) IF YOU DO NOT FOLLOW THESE DIRECTIONS, YOUR COLONOSCOPY WILL BE CANCELLED. Downs Instructions: Your bowel must be empty so that your doctor can clearly view your colon. Follow all of the instructions in this handout EXACTLY as they are written. Do NOT eat any solid food the ENTIRE day before your colonoscopy. Drink only clear liquids. Buy your bowel preparation at least 5 days before your colonoscopy. TRANSPORTATION on the Day of Your Exam A responsible person MUST be present with you at Check In prior to your colonoscopy and REMAIN in the endoscopy area until you are discharged. You are NOT ALLOWED to drive, take a taxi or bus, or leave the Endoscopy Center ALONE. If you do not have a responsible driver salesman (family member or friend) with you to take you home, your exam cannot be done with sedation and will be cancelled. Please bring a list of all of your current medications, including any Over-the Counter medications with you. Medications If you take insulin, diabetic medications or blood thinners such as Coumadin (warfarin), Plavix (clopidogrel), Ticlid (ticlopidine hydrochloride), Agrylin (anagrelide), Xarelto (Rivaroxaban), Pradaxa (Dabigatran), Eliquis (Apixaban), and Effient (Prasugrel). You MUST call the doctors who orders those medicines for instructions on altering the dosage before your colonoscopy. All other medications should be taken the day of the exam with a sip of water including ASPIRIN. Five (5) Days Before Your Colonoscopy Do NOT take medicines that stop diarrhea - such as Imodium, Kaopectate, or Pepto Bismol. Do NOT take fiber supplements - such as Metamucil, Citrucel, or Perdiem. Do NOT take products that contain iron - such as multi-vitamins (the label lists what is in the products). Do NOT take Vitamin E. Buy the prescription bowel preparation solution at your local pharmacy or drugstore pharmacy. 08/2019 Bowel Preparation Instructions for: Golytely, Nulytely, Trilyte or Colyte (polyethylene glycol 3350 and electrolytes) Three (3) Days Before Your Colonoscopy Do NOT eat high-fiber foods - such as popcorn, beans, seeds (flax, sunflower, quinoa), multigrain bread, nuts, salad/vegetables, or fresh and dried fruit. One (1) Day Before Your Colonoscopy Only drink clear liquids the ENTIRE DAY before your colonoscopy. Do NOT eat any solid foods. Drink at least 8 ounces of clear liquids every hour after waking up. The clear liquids you can drink include: Clear Liquid (NO RED LIQUIDS) DO NOT DRINK Gatorade, Pedialyte or Powerade Clear broth or bouillon Coffee or tea (no milk or non-dairy creamer) Carbonated and non-carbonated soft drinks Renaldo-Aid or other fruit flavored drinks Strained fruit juices (no pulp) Jell-O, popsicles, hard candy Water Alcohol Milk or non-dairy creamers Noodles or vegetables in soup Juice with pulp Liquid you cannot see through Do not use tobacco/vaping products The bowel preparation solution will be consumed in two parts. Mix the solution the evening before your colonoscopy and refrigerate before drinking. You may add the flavor pack that came with the bowel preparation. Do NOT add ice, sugar or any other flavorings to the solution. Part 1 At 6:00 PM - Evening before your colonoscopy Drink an 8-oz glass of bowel preparation every 10 minutes for a total of 8 glasses until clear You may continue to drink clear liquids until midnight. 2 08/2019 documented in this encounter [facility] 10-18-2023 Nurse Note REVIEW OF SYSTEMS: General: The patient denies fatigue, denies weight loss, notes weight gain, denies feeling hot, and denies feelings of cold. Eyes: The patient denies glaucoma, notes eye injury/surgery, wears glasses or contacts. Ear/Nose/Throat: The patient notes allergies, denies hayfever, denies ear infections, and denies bloody noses. Cardiovascular: The patient denies chest pain, denies heart disease, notes high blood pressure,denies cardiac stent, denies prior heart attack, denies irregular heart beat, notes high cholesterol, denies poor circulation, denies heart failure, other cardiac issues, denies claudication, denies cold feet, denies peripheral arterial stent. Respiratory: The patient denies tuberculosis, denies pneumonia, denies frequent cough, denies pulmonary embolism, denies shortness of breath, and denies coughing up blood. Gastrointestinal: The patient denies difficulty swallowing, notes acid reflux, denies ulcers, denies vomiting, denies jaundice/hepatitis, denies gallbladder problems, denies black or tarry stools, denies hemorrhoids, denies bleeding from rectum, denies diverticulitis, denies constipation, denies diarrhea, denies loss of stool control, and denies hernias. Kidney/Bladder: The patient notes kidney stones, denies urine infections, and denies bloody urine. Skin: The patient denies a history of skin cancer, denies bleeding/changing moles, and denies a history of skin rash. Neurologic: The patient denies a history of epilepsy/convulsions, denies headaches, denies head/spinal injuries, and denies stroke/TIA. Psychiatric: The patient denies psychiatric medications, denies depression, and denies voices, denies substance abuse. Endocrine: The patient denies thyroid disorders, denies diabetes, and denies hormonal problems. Hematologic: The patient denies a history of bruising, denies bleeding, and denies anemia, denies blood clots. Infections: The patient notes a history of measles and mumps, denies rheumatic fever, and denies sexually transmitted diseases. Musculoskeletal: The patient denies back pain/injury, denies back problems, denies sciatica, denies knee/foot trouble, notes arthritis, or denies gout. When was patient's last Mammogram screening? N/A Last Colonoscopy: 11/2022 Cheryl Marsh LPN documented in this encounter [facility] 12-19-2022 Miscellaneous Notes FOLLOW UP ENDOSCOPY - RESULTS AND RECOMMENDATIONS NAME: Guanakito Callejas [facility] NO.: [id number] : 1940 DATE: December 19, 2022 PRIMARY CARE PROVIDER: David Perera DO Guanakito Callejas is a patient referred for endoscopy for a history of polyps. I performed lower endoscopy endoscopy on December 14, 2022. The patient was found to have: Lower Endoscopy: Findings: The digital rectal exam revealed a 4 cm (diameter) hard rectal mass. The mass was prostate, known malignancy. Seven sessile polyps were found in the sigmoid colon, descending colon, transverse colon and ascending colon. The polyps were 8 to 16 mm in size. These polyps were removed with a cold snare. Resection and retrieval were complete. To prevent bleeding after the polypectomy, one hemostatic clip was successfully placed (MR conditional). There was no bleeding at the end of the procedure. Many small and large-mouthed diverticula were found in the entire colon. The exam was otherwise without abnormality on direct and retroflexion views. Pathology demonstrated: FINAL DIAGNOSIS A. Ascending colon polyp, polypectomy: - Sessile serrated polyp with conventional dysplasia. B. Transverse colon polyp x3, polypectomy: - Colonic mucosa with reactive change. - No evidence of adenomatous mucosa. - Multiple deeper sections are examined. C. Descending colon polyp, polypectomy: - Tubular adenoma with high-grade dysplasia. D. Sigmoid colon polyp x2, polypectomy: - Tubular adenoma with high-grade dysplasia. - Hyperplastic polyp. IMPRESSION: multiple polyps with high grade dysplasia PLAN: INSTRUCTIONS FOLLOWING A POLYP FOUND AT COLONOSCOPY You were found to have adenomatous colon polyps. I recommend you undergo repeat endoscopy in 1 years. If you note bleeding, change in bowel habits, or other suspicious colon related symptoms before that time, those symptoms should be evaluated as necessary. If you have any difficulties or concerns, you should contact our office immediately. The patient is instructed to follow-up with your primary care provider as needed I have instructed my staff to forward the above information to the patient and to the appropriate providers documented in this encounter [facility] 12-14-2022 Nurse Note Arrived in phase II via cart. Left lateral position. Sedated, but responds to verbal stimuli. Color normal; skin warm and dry. Respirations wnl and unlabored. Abdomen soft and with + bowel sounds in quads X 4. Patient resting comfortably. Dr. Del Cid at bedside to review procedure and recommendations. Katiana Brewer RN documented in this encounter [facility] 12-14-2022 History and physical note UPDATED PROCEDURAL SEDATION HISTORY AND PHYSICAL EXAMINATION SERVICE DATE: 12/14/2022 SERVICE TIME: 10:51 AM PHYSICAL EXAM MUST BE COMPLETED ON ADMISSION PROCEDURE: Procedure Indications: The History and Physical (completed in the past 30 days) has been reviewed and the patient has been examined. The contents accurately reflect the patient's condition with the following additions or revisions since the H&P was completed. ASA Class: ASA Class:: Patient with severe systemic disease Examination indicates no changes. AIRWAY: Airway Visualization of Uvula: Yes Mouth opening greater than 2 fingerbreadths: Yes Neck Full Range of Motion: Yes LUNGS: Lungs clear to auscultation CARDIAC: Regular rhythm,Regular rate Provisional Diagnosis/Treatment Plan: personal history of colon polyps - colonoscopy SEDATION GOAL: Moderate This H&P can be found in the attached. SIGNATURE: Ham Del Cid MD PATIENT NAME: Guanakito Callejas DATE: December 14, 2022 TIME: 10:51 AM Source Note - Ham Del Cid MD - 12/14/2022 10:30 AM EDT Images from the original note were not included. HISTORY AND PHYSICAL Gunaakito Callejas 1940 REFERRING PHYSICIAN: No ref. provider found CHIEF COMPLAINT: Consult (colonoscopy) HPI: The patient is a 81 year old male referred for endoscopy. Guanakito notes no history of colon complaints. The patient notes no history of upper GI complaints. Guanakito has undergone prior endoscopy. I performed colonoscopy on July 13, 2019. The patient was found to have 5 medium sized polyps in the rectosigmoid sigmoid and transverse colon. Pathology returned as a tubular adenoma and a sessile serrated polyp in the transverse colon hyperplastic polyp in the sigmoid colon and a tubular adenoma in the rectum. I recommended follow-up colonoscopy in 3 years. The patient is being seen by me today at the request of Dr. David Perera DO for my opinion and advice regarding follow up colonoscopy. The patient has recently been diagnosed with prostate cancer. He will be seeing Dr. Ashley on October 28 for planning his treatment. He wishes to postpone scheduling his colonoscopy till he knows the plan for his prostate treatment. PAST MEDICAL HISTORY PAST MEDICAL HISTORY Diagnosis Date BPH (benign prostatic hyperplasia) Colon polyps Coronary artery disease HTN (hypertension) Hypercholesteremia PAST SURGICAL HISTORY PAST SURGICAL HISTORY Procedure Laterality Date COLONOSCOPY COLONOSCOPY FLX DX W/COLLJ SPEC WHEN PFRMD 07/13/2019 Colonoscopy LAPAROSCOPY COLECTOMY PARTIAL W/ANASTOMOSIS 05/08/2018 lap right hemicolectomy [facility] ROTATOR CUFF REPAIR CURRENT MEDICATIONS Current Outpatient Medications Medication Sig amLODIPine (NORVASC) 10 mg tablet Take 10 mg by mouth once daily. atorvastatin (LIPITOR) 20 mg tablet Take 20 mg by mouth once daily. finasteride (PROSCAR) 5 mg tablet Take 5 mg by mouth once daily. multivitamin tablet Take 1 tablet by mouth once daily. aspirin 81 mg chewable tablet Take 1 tablet by mouth once daily. (Patient not taking: Reported on 10/21/2022) No current facility-administered medications for this visit. ALLERGIES: Penicillins PERSONAL HISTORY: SOCIAL HISTORY Social History Tobacco Use Smoking status: Never Smokeless tobacco: Never Vaping Use Vaping Use: Never used Substance Use Topics Alcohol use: Yes Comment: occ Drug use: Never FAMILY HISTORY: FAMILY HISTORY FAMILY HISTORY Problem Relation Age of Onset other (old age) Mother Heart Father Colon Cancer Sister REVIEW OF SYMPTOMS: The review of systems data was entered by the nurse and reviewed by me Nursing Notes: Ibis ANDRY Vargas 10/21/2022 9:09 AM Signed REVIEW OF SYSTEMS: General: The patient denies fatigue, denies weight loss, denies weight gain, denies feeling hot, and denies feelings of cold. Eyes: The patient denies glaucoma, denies eye injury/surgery, wears glasses or contacts. Ear/Nose/Throat: The patient denies allergies, denies hayfever, denies ear infections, and denies bloody noses. Cardiovascular: The patient denies chest pain, denies heart disease, NOTES high blood pressure,denies cardiac stent, denies prior heart attack, denies irregular heart beat, denies high cholesterol, denies poor circulation, denies heart failure, other cardiac issues, denies claudication, denies cold feet, denies peripheral arterial stent. Respiratory: The patient denies tuberculosis, denies pneumonia, denies frequent cough, denies pulmonary embolism, denies shortness of breath, and denies coughing up blood. Gastrointestinal: The patient denies difficulty swallowing, NOTES acid reflux, denies ulcers, denies vomiting, denies jaundice/hepatitis, denies gallbladder problems, denies black or tarry stools, denies hemorrhoids, denies bleeding from rectum, denies diverticulitis, denies constipation, denies diarrhea, denies loss of stool control, and denies hernias. Kidney/Bladder: The patient NOTES kidney stones, denies urine infections, and denies bloody urine. Skin: The patient denies a history of skin cancer, denies bleeding/changing moles, and denies a history of skin rash. Neurologic: The patient denies a history of epilepsy/convulsions, denies headaches, denies head/spinal injuries, and denies stroke/TIA. Psychiatric: The patient denies psychiatric medications, denies depression, and denies voices, denies substance abuse. Endocrine: The patient denies thyroid disorders, denies diabetes, and denies hormonal problems. Hematologic: The patient denies a history of bruising, denies bleeding, and denies anemia, denies blood clots. Infections: The patient denies a history of measles and mumps, denies rheumatic fever, and denies sexually transmitted diseases. Musculoskeletal: The patient denies back pain/injury, denies back problems, denies sciatica, denies knee/foot trouble, denies arthritis, or denies gout. When was patient's last Mammogram screening? N/A Last Colonoscopy: 06/2019 Ibis Vargas LPN PHYSICAL EXAMINATION: General: The patient is 81 year old male, well nourished, well hydrated in no acute distress. The patient is oriented to time, place, and person. VITALS: Blood pressure 132/74, pulse 80, temperature 36.4 C (97.6 F), height 177.8 cm (5' 10 ), weight 90.8 kg (200 lb 3.2 oz), SpO2 97 %. Body mass index is 28.73 kg/m . HEENT: Normal cephalic, ataumatic, pupils are equally round, sclera are anicteric, mucous membranes are moist, oropharynx is clear. Neck has no masses, asymmetry or lymphadenopathy. Thyroid is unremarkable. Respiratory: Clear to auscultation and percussion. Normal respiratory excursion and pattern. Cardiac: Examination is regular rate and rhythm. Abdominal exam: Soft, nontender, with no palpable masses. No hepatosplenomegaly. No palpable hernias. Rectal exam: exam deferred Extremities: no clubbing, cyanosis or edema. No adenopathy. Other: LABORATORY VALUES: As Noted RADIOLOGIC STUDIES: As Noted Assessment IMPRESSION: History of colon cancer, personal history of colon polyps PLAN: I plan to perform lower endoscopy. We discussed the risks and benefits of the planned endoscopy. I have informed the patient that complications can occur including failure to complete the endoscopy and perforation. The patient had the opportunity to ask questions concerning the planned endoscopy. My staff has also explained the procedure to the patient in understandable terms and has given the patient printed material concerning the procedure. The patient freely consents to surgery. I plan to use golytely bowel preparation for endoscopy I will have my immigration consultant Lexus call the patient after October 28 to plan the time for his colonoscopy. Diagnoses: (D12.6) Adenomatous polyp of colon, unspecified part of colon (primary encounter diagnosis) A letter was sent to Dr. David Perera DO indicating the above finding for this patient. Return to Clinic: The patient is instructed to follow-up with me after the testing has been completed. Ham Del Cid MD Images from the original note were not included. HISTORY AND PHYSICAL Guanakito Callejas 1940 REFERRING PHYSICIAN: No ref. provider found CHIEF COMPLAINT: Consult (colonoscopy) HPI: The patient is a 81 year old male referred for endoscopy. Guanakito notes no history of colon complaints. The patient notes no history of upper GI complaints. Guanakito has undergone prior endoscopy. I performed colonoscopy on July 13, 2019. The patient was found to have 5 medium sized polyps in the rectosigmoid sigmoid and transverse colon. Pathology returned as a tubular adenoma and a sessile serrated polyp in the transverse colon hyperplastic polyp in the sigmoid colon and a tubular adenoma in the rectum. I recommended follow-up colonoscopy in 3 years. The patient is being seen by me today at the request of Dr. David Perera DO for my opinion and advice regarding follow up colonoscopy. The patient has recently been diagnosed with prostate cancer. He will be seeing Dr. Ashley on October 28 for planning his treatment. He wishes to postpone scheduling his colonoscopy till he knows the plan for his prostate treatment. PAST MEDICAL HISTORY PAST MEDICAL HISTORY Diagnosis Date BPH (benign prostatic hyperplasia) Colon polyps Coronary artery disease HTN (hypertension) Hypercholesteremia PAST SURGICAL HISTORY PAST SURGICAL HISTORY Procedure Laterality Date COLONOSCOPY COLONOSCOPY FLX DX W/COLLJ SPEC WHEN PFRMD 07/13/2019 Colonoscopy LAPAROSCOPY COLECTOMY PARTIAL W/ANASTOMOSIS 05/08/2018 lap right hemicolectomy [facility] ROTATOR CUFF REPAIR CURRENT MEDICATIONS Current Outpatient Medications Medication Sig amLODIPine (NORVASC) 10 mg tablet Take 10 mg by mouth once daily. atorvastatin (LIPITOR) 20 mg tablet Take 20 mg by mouth once daily. finasteride (PROSCAR) 5 mg tablet Take 5 mg by mouth once daily. multivitamin tablet Take 1 tablet by mouth once daily. aspirin 81 mg chewable tablet Take 1 tablet by mouth once daily. (Patient not taking: Reported on 10/21/2022) No current facility-administered medications for this visit. ALLERGIES: Penicillins PERSONAL HISTORY: SOCIAL HISTORY Social History Tobacco Use Smoking status: Never Smokeless tobacco: Never Vaping Use Vaping Use: Never used Substance Use Topics Alcohol use: Yes Comment: occ Drug use: Never FAMILY HISTORY: FAMILY HISTORY FAMILY HISTORY Problem Relation Age of Onset other (old age) Mother Heart Father Colon Cancer Sister REVIEW OF SYMPTOMS: The review of systems data was entered by the nurse and reviewed by me Nursing Notes: Ibis Vargas LPN 10/21/2022 9:09 AM Signed REVIEW OF SYSTEMS: General: The patient denies fatigue, denies weight loss, denies weight gain, denies feeling hot, and denies feelings of cold. Eyes: The patient denies glaucoma, denies eye injury/surgery, wears glasses or contacts. Ear/Nose/Throat: The patient denies allergies, denies hayfever, denies ear infections, and denies bloody noses. Cardiovascular: The patient denies chest pain, denies heart disease, NOTES high blood pressure,denies cardiac stent, denies prior heart attack, denies irregular heart beat, denies high cholesterol, denies poor circulation, denies heart failure, other cardiac issues, denies claudication, denies cold feet, denies peripheral arterial stent. Respiratory: The patient denies tuberculosis, denies pneumonia, denies frequent cough, denies pulmonary embolism, denies shortness of breath, and denies coughing up blood. Gastrointestinal: The patient denies difficulty swallowing, NOTES acid reflux, denies ulcers, denies vomiting, denies jaundice/hepatitis, denies gallbladder problems, denies black or tarry stools, denies hemorrhoids, denies bleeding from rectum, denies diverticulitis, denies constipation, denies diarrhea, denies loss of stool control, and denies hernias. Kidney/Bladder: The patient NOTES kidney stones, denies urine infections, and denies bloody urine. Skin: The patient denies a history of skin cancer, denies bleeding/changing moles, and denies a history of skin rash. Neurologic: The patient denies a history of epilepsy/convulsions, denies headaches, denies head/spinal injuries, and denies stroke/TIA. Psychiatric: The patient denies psychiatric medications, denies depression, and denies voices, denies substance abuse. Endocrine: The patient denies thyroid disorders, denies diabetes, and denies hormonal problems. Hematologic: The patient denies a history of bruising, denies bleeding, and denies anemia, denies blood clots. Infections: The patient denies a history of measles and mumps, denies rheumatic fever, and denies sexually transmitted diseases. Musculoskeletal: The patient denies back pain/injury, denies back problems, denies sciatica, denies knee/foot trouble, denies arthritis, or denies gout. When was patient's last Mammogram screening? N/A Last Colonoscopy: 06/2019 Ibis Vargas LPN PHYSICAL EXAMINATION: General: The patient is 81 year old male, well nourished, well hydrated in no acute distress. The patient is oriented to time, place, and person. VITALS: Blood pressure 132/74, pulse 80, temperature 36.4 C (97.6 F), height 177.8 cm (5' 10 ), weight 90.8 kg (200 lb 3.2 oz), SpO2 97 %. Body mass index is 28.73 kg/m . HEENT: Normal cephalic, ataumatic, pupils are equally round, sclera are anicteric, mucous membranes are moist, oropharynx is clear. Neck has no masses, asymmetry or lymphadenopathy. Thyroid is unremarkable. Respiratory: Clear to auscultation and percussion. Normal respiratory excursion and pattern. Cardiac: Examination is regular rate and rhythm. Abdominal exam: Soft, nontender, with no palpable masses. No hepatosplenomegaly. No palpable hernias. Rectal exam: exam deferred Extremities: no clubbing, cyanosis or edema. No adenopathy. Other: LABORATORY VALUES: As Noted RADIOLOGIC STUDIES: As Noted Assessment IMPRESSION: History of colon cancer, personal history of colon polyps PLAN: I plan to perform lower endoscopy. We discussed the risks and benefits of the planned endoscopy. I have informed the patient that complications can occur including failure to complete the endoscopy and perforation. The patient had the opportunity to ask questions concerning the planned endoscopy. My staff has also explained the procedure to the patient in understandable terms and has given the patient printed material concerning the procedure. The patient freely consents to surgery. I plan to use golytely bowel preparation for endoscopy I will have my immigration consultant Lexus call the patient after October 28 to plan the time for his colonoscopy. Diagnoses: (D12.6) Adenomatous polyp of colon, unspecified part of colon (primary encounter diagnosis) A letter was sent to Dr. David Perera DO indicating the above finding for this patient. Return to Clinic: The patient is instructed to follow-up with me after the testing has been completed. Ham Del Cid MD documented in this encounter [facility] 10-21-2022 Instructions Ham Del Cid MD - 10/21/2022 10:14 AM EST Images from the original note were not included. Bowel Preparation Instructions for: Golytely, Nulytely, Trilyte or Colyte (polyethylene glycol 3350 and electrolytes) IF YOU DO NOT FOLLOW THESE DIRECTIONS, YOUR COLONOSCOPY WILL BE CANCELLED. Downs Instructions: Your bowel must be empty so that your doctor can clearly view your colon. Follow all of the instructions in this handout EXACTLY as they are written. Do NOT eat any solid food the ENTIRE day before your colonoscopy. Drink only clear liquids. Buy your bowel preparation at least 5 days before your colonoscopy. TRANSPORTATION on the Day of Your Exam A responsible person MUST be present with you at Check In prior to your colonoscopy and REMAIN in the endoscopy area until you are discharged. You are NOT ALLOWED to drive, take a taxi or bus, or leave the Endoscopy Center ALONE. If you do not have a responsible driver salesman (family member or friend) with you to take you home, your exam cannot be done with sedation and will be cancelled. Please bring a list of all of your current medications, including any Over-the Counter medications with you. Medications If you take insulin, diabetic medications or blood thinners such as Coumadin (warfarin), Plavix (clopidogrel), Ticlid (ticlopidine hydrochloride), Agrylin (anagrelide), Xarelto (Rivaroxaban), Pradaxa (Dabigatran), Eliquis (Apixaban), and Effient (Prasugrel). You MUST call the doctors who orders those medicines for instructions on altering the dosage before your colonoscopy. All other medications should be taken the day of the exam with a sip of water including ASPIRIN. Five (5) Days Before Your Colonoscopy Do NOT take medicines that stop diarrhea - such as Imodium, Kaopectate, or Pepto Bismol. Do NOT take fiber supplements - such as Metamucil, Citrucel, or Perdiem. Do NOT take products that contain iron - such as multi-vitamins (the label lists what is in the products). Do NOT take Vitamin E. Buy the prescription bowel preparation solution at your local pharmacy or drugstore pharmacy. 1 08/2019 Bowel Preparation Instructions for: Golytely, Nulytely, Trilyte or Colyte (polyethylene glycol 3350 and electrolytes) Three (3) Days Before Your Colonoscopy Do NOT eat high-fiber foods - such as popcorn, beans, seeds (flax, sunflower, quinoa), multigrain bread, nuts, salad/vegetables, or fresh and dried fruit. One (1) Day Before Your Colonoscopy Only drink clear liquids the ENTIRE DAY before your colonoscopy. Do NOT eat any solid foods. Drink at least 8 ounces of clear liquids every hour after waking up. The clear liquids you can drink include: Clear Liquid (NO RED LIQUIDS) DO NOT DRINK Gatorade, Pedialyte or Powerade Clear broth or bouillon Coffee or tea (no milk or non-dairy creamer) Carbonated and non-carbonated soft drinks Renaldo-Aid or other fruit flavored drinks Strained fruit juices (no pulp) Jell-O, popsicles, hard candy Water Alcohol Milk or non-dairy creamers Noodles or vegetables in soup Juice with pulp Liquid you cannot see through Do not use tobacco/vaping products The bowel preparation solution will be consumed in two parts. Mix the solution the evening before your colonoscopy and refrigerate before drinking. You may add the flavor pack that came with the bowel preparation. Do NOT add ice, sugar or any other flavorings to the solution. Part 1 - 2 nights before At 6:00 PM - Evening before your colonoscopy Drink an 8-oz glass of bowel preparation every 10 minutes for a total of 8 glasses. . Part 2 - night before At 6:00 PM - Evening before your colonoscopy Drink an 8-oz glass of bowel preparation every 10 minutes for a total of 8 glasses. You may continue to drink clear liquids until midnight. 2 08/2019 documented in this encounter [facility] 10-21-2022 History of Presen t illness Narrative HISTORY AND PHYSICAL Guanakito Callejas 1940 REFERRING PHYSICIAN: No ref. provider found CHIEF COMPLAINT: Consult (colonoscopy) HPI: The patient is a 81 year old male referred for endoscopy. Guanakito notes no history of colon complaints. The patient notes no history of upper GI complaints. Guanakito has undergone prior endoscopy. I performed colonoscopy on July 13, 2019. The patient was found to have 5 medium sized polyps in the rectosigmoid sigmoid and transverse colon. Pathology returned as a tubular adenoma and a sessile serrated polyp in the transverse colon hyperplastic polyp in the sigmoid colon and a tubular adenoma in the rectum. I recommended follow-up colonoscopy in 3 years. The patient is being seen by me today at the request of Dr. David Perera DO for my opinion and advice regarding follow up colonoscopy. The patient has recently been diagnosed with prostate cancer. He will be seeing Dr. Ashley on October 28 for planning his treatment. He wishes to postpone scheduling his colonoscopy till he knows the plan for his prostate treatment. PAST MEDICAL HISTORY Diagnosis Date BPH (benign prostatic hyperplasia) Colon polyps Coronary artery disease HTN (hypertension) Hypercholesteremia PAST SURGICAL HISTORY Procedure Laterality Date COLONOSCOPY COLONOSCOPY FLX DX W/COLLJ SPEC WHEN PFRMD 07/13/2019 Colonoscopy LAPAROSCOPY COLECTOMY PARTIAL W/ANASTOMOSIS 05/08/2018 lap right hemicolectomy [facility] ROTATOR CUFF REPAIR Current Outpatient Medications Medication Sig amLODIPine (NORVASC) 10 mg tablet Take 10 mg by mouth once daily. atorvastatin (LIPITOR) 20 mg tablet Take 20 mg by mouth once daily. finasteride (PROSCAR) 5 mg tablet Take 5 mg by mouth once daily. multivitamin tablet Take 1 tablet by mouth once daily. aspirin 81 mg chewable tablet Take 1 tablet by mouth once daily. (Patient not taking: Reported on 10/21/2022) No current facility-administered medications for this visit. ALLERGIES: Penicillins PERSONAL HISTORY: Social History Tobacco Use Smoking status: Never Smokeless tobacco: Never Vaping Use Vaping Use: Never used Substance Use Topics Alcohol use: Yes Comment: occ Drug use: Never FAMILY HISTORY: FAMILY HISTORY Problem Relation Age of Onset other (old age) Mother Heart Father Colon Cancer Sister REVIEW OF SYMPTOMS: The review of systems data was entered by the nurse and reviewed by me Nursing Notes: Ibis Vargas LPN 10/21/2022 9:09 AM Signed REVIEW OF SYSTEMS: General: The patient denies fatigue, denies weight loss, denies weight gain, denies feeling hot, and denies feelings of cold. Eyes: The patient denies glaucoma, denies eye injury/surgery, wears glasses or contacts. Ear/Nose/Throat: The patient denies allergies, denies hayfever, denies ear infections, and denies bloody noses. Cardiovascular: The patient denies chest pain, denies heart disease, NOTES high blood pressure,denies cardiac stent, denies prior heart attack, denies irregular heart beat, denies high cholesterol, denies poor circulation, denies heart failure, other cardiac issues, denies claudication, denies cold feet, denies peripheral arterial stent. Respiratory: The patient denies tuberculosis, denies pneumonia, denies frequent cough, denies pulmonary embolism, denies shortness of breath, and denies coughing up blood. Gastrointestinal: The patient denies difficulty swallowing, NOTES acid reflux, denies ulcers, denies vomiting, denies jaundice/hepatitis, denies gallbladder problems, denies black or tarry stools, denies hemorrhoids, denies bleeding from rectum, denies diverticulitis, denies constipation, denies diarrhea, denies loss of stool control, and denies hernias. Kidney/Bladder: The patient NOTES kidney stones, denies urine infections, and denies bloody urine. Skin: The patient denies a history of skin cancer, denies bleeding/changing moles, and denies a history of skin rash. Neurologic: The patient denies a history of epilepsy/convulsions, denies headaches, denies head/spinal injuries, and denies stroke/TIA. Psychiatric: The patient denies psychiatric medications, denies depression, and denies voices, denies substance abuse. Endocrine: The patient denies thyroid disorders, denies diabetes, and denies hormonal problems. Hematologic: The patient denies a history of bruising, denies bleeding, and denies anemia, denies blood clots. Infections: The patient denies a history of measles and mumps, denies rheumatic fever, and denies sexually transmitted diseases. Musculoskeletal: The patient denies back pain/injury, denies back problems, denies sciatica, denies knee/foot trouble, denies arthritis, or denies gout. When was patient's last Mammogram screening? N/A Last Colonoscopy: 06/2019 Ibisnavya Vargas LPN PHYSICAL EXAMINATION: General: The patient is 81 year old male, well nourished, well hydrated in no acute distress. The patient is oriented to time, place, and person. VITALS: Blood pressure 132/74, pulse 80, temperature 36.4 C (97.6 F), height 177.8 cm (5' 10 ), weight 90.8 kg (200 lb 3.2 oz), SpO2 97 %. Body mass index is 28.73 kg/m . HEENT: Normal cephalic, ataumatic, pupils are equally round, sclera are anicteric, mucous membranes are moist, oropharynx is clear. Neck has no masses, asymmetry or lymphadenopathy. Thyroid is unremarkable. Respiratory: Clear to auscultation and percussion. Normal respiratory excursion and pattern. Cardiac: Examination is regular rate and rhythm. Abdominal exam: Soft, nontender, with no palpable masses. No hepatosplenomegaly. No palpable hernias. Rectal exam: exam deferred Extremities: no clubbing, cyanosis or edema. No adenopathy. Other: LABORATORY VALUES: As Noted RADIOLOGIC STUDIES: As Noted Assessment IMPRESSION: History of colon cancer, personal history of colon polyps PLAN: I plan to perform lower endoscopy. We discussed the risks and benefits of the planned endoscopy. I have informed the patient that complications can occur including failure to complete the endoscopy and perforation. The patient had the opportunity to ask questions concerning the planned endoscopy. My staff has also explained the procedure to the patient in understandable terms and has given the patient printed material concerning the procedure. The patient freely consents to surgery. I plan to use golytely bowel preparation for endoscopy I will have my immigration consultant Lexus call the patient after October 28 to plan the time for his colonoscopy. Diagnoses: (D12.6) Adenomatous polyp of colon, unspecified part of colon (primary encounter diagnosis) A letter was sent to Dr. David Perera DO indicating the above finding for this patient. Return to Clinic: The patient is instructed to follow-up with me after the testing has been completed. Ham Del Cid MD documented in this encounter [facility] 10-21-2022 Nurse Note REVIEW OF SYSTEMS: General: The patient denies fatigue, denies weight loss, denies weight gain, denies feeling hot, and denies feelings of cold. Eyes: The patient denies glaucoma, denies eye injury/surgery, wears glasses or contacts. Ear/Nose/Throat: The patient denies allergies, denies hayfever, denies ear infections, and denies bloody noses. Cardiovascular: The patient denies chest pain, denies heart disease, NOTES high blood pressure,denies cardiac stent, denies prior heart attack, denies irregular heart beat, denies high cholesterol, denies poor circulation, denies heart failure, other cardiac issues, denies claudication, denies cold feet, denies peripheral arterial stent. Respiratory: The patient denies tuberculosis, denies pneumonia, denies frequent cough, denies pulmonary embolism, denies shortness of breath, and denies coughing up blood. Gastrointestinal: The patient denies difficulty swallowing, NOTES acid reflux, denies ulcers, denies vomiting, denies jaundice/hepatitis, denies gallbladder problems, denies black or tarry stools, denies hemorrhoids, denies bleeding from rectum, denies diverticulitis, denies constipation, denies diarrhea, denies loss of stool control, and denies hernias. Kidney/Bladder: The patient NOTES kidney stones, denies urine infections, and denies bloody urine. Skin: The patient denies a history of skin cancer, denies bleeding/changing moles, and denies a history of skin rash. Neurologic: The patient denies a history of epilepsy/convulsions, denies headaches, denies head/spinal injuries, and denies stroke/TIA. Psychiatric: The patient denies psychiatric medications, denies depression, and denies voices, denies substance abuse. Endocrine: The patient denies thyroid disorders, denies diabetes, and denies hormonal problems. Hematologic: The patient denies a history of bruising, denies bleeding, and denies anemia, denies blood clots. Infections: The patient denies a history of measles and mumps, denies rheumatic fever, and denies sexually transmitted diseases. Musculoskeletal: The patient denies back pain/injury, denies back problems, denies sciatica, denies knee/foot trouble, denies arthritis, or denies gout. When was patient's last Mammogram screening? N/A Last Colonoscopy: 06/2019 Ibis Vargas LPN documented in this encounter [facility] Diagnosis Special screening for malignant neoplasms, colon- Primary Adenomatous polyp of colon, unspecified part of colon [facility] Diagnosis Adenomatous polyp of colon, unspecified part of colon- Primary documented in this encounter [facility] for referral (narrative)* Outpatient Procedure (Routine) - Pending Review Specialty Diagnoses / Procedures Referred By Rogelio downey Referred To Contact [facility] Diagnoses Adenomatous polyp of colon, unspecified part of colon Procedures COLONOSCOPY SCREENING COLONOSCOPY FLX DX W/COLLJ SPEC WHEN Ham Saleh MD [address] [place] [address] [place] [id number] Referral ID Status Reason Start Date Expiration Date Visits Requested Visits Authorized [id number] Pending Review Auto-Generat ed Referral 10/21/2022 10/21/2023 1 1 [facility] for referral (narrative)* Outpatient Procedure (Routine) - Closed Specialty Diagnoses / Procedures Referred By Rogelio downey Referred To Contact [facility] Diagnoses Adenomatous polyp of colon, unspecified part of colon Procedures COLONOSCOPY SCREENING COLONOSCOPY FLX DX W/COLLJ SPEC WHEN Ham Saleh MD [address] [place] [address] [place] [id number] Referral ID Status Reason Start Date Expiration Date V isits Requested Visits Authorized [id number] Closed Auto-Generate d Referral 10/21/2022 10/21/2023 1 1 [facility] for referral (narrative)* Outpatient Procedure (Routine) - Authorized Specialty Diagnoses / Procedures Referred By Rogelio downey Referred To Contact [facility] Diagnoses Adenomatous polyp of colon, unspecified part of colon Procedures COLONOSCOPY SCREENING COLONOSCOPY FLX DX W/COLLJ SPEC WHEN Ham Saleh MD [address] [address] Referral ID Status Reason Start Date Expiration Date Visits Requested Visits Authorized [id number] Authorized Auto-Generat ed Referral 10/18/2023 10/18/2024 1 1 [facility] for visit Narrative* Outpatient Procedure (Routine) - Closed Specialty Diagnoses / Procedures Referred By Rogelio downey Referred To Contact [facility] Diagnoses Adenomatous polyp of colon, unspecified part of colon Procedures COLONOSCOPY SCREENING COLONOSCOPY FLX DX W/COLLJ SPEC WHEN Ham Saleh MD [address] [place] [address] [place] [id number] [place] [address] Referral ID Status Reason Start Date Expiration Date V isits Requested Visits Authorized [id number] Closed Auto-Generate d Referral 10/21/2022 10/21/2023 1 1 [facility] Medications Administered Section Inactive Administered Medications - up to 3 most recent administrations Medication Order MAR Action Action Date Dose Rate Site fentaNYL 50 mcg/mL 25-100 mcg injection (SUBLIMAZE) 25-100 mcg, INTRAVENOUS, DIRECTED, Starting on Tue12/14/22 at 1100, Until Tue12/14/22 at 1459, DOSING DIRECTED BY PHYSICIAN FOR PROCEDURAL SEDATION ONLY, Intraprocedure Given 12/14/2022 11:21 AM EDT 25 mcg Summary Purpose Family History No Family History Records Found Advance Directives No Advanced Directives Records Found Additional Source Comments Source Comments (unrecognize d section and content) In the event this informatio n is protected by the Federal Confidentiality of Alcohol and Drug Abuse Patient Records regulations: The Federal rules restrict any use of the information to criminally investigate or prosecute any alcohol or drug abuse patient.[facility] the event this information is protected by the Federal Confidentiality of Alcohol and Drug Abuse Patient Records regulations: The Federal rules restrict any use of the information to criminally investigate or prosecute any alcohol or drug abuse patient.[facility] the event this information is protected by the Federal Confidentiality of Alcohol and Drug Abuse Patient Records regulations: The Federal rules restrict any use of the information to criminally investigate or prosecute any alcohol or drug abuse patient.[facility] the event this information is protected by the Federal Confidentiality of Alcohol and Drug Abuse Patient Records regulations: The Federal rules restrict any use of the information to criminally investigate or prosecute any alcohol or drug abuse patient.[facility] Reason for Visit (unrecogniz ed section and content) Reason Comments Results Care Teams (unrecognized sec tion and content) Electric Vehicle Electrician Relationship Specialty Start Date End Date David Perera DO [address] [place] [id number] PCP - [facility] Family [facility] 09/23/17 Electric Vehicle Electrician Relationship Specialty Start Date End Date David Perera DO [address] [place] [phone] PCP - General [facility] 09/23/17 Electric Vehicle Electrician Relationship Specialty Start Date End Date David Perera DO [address] [place] [address] PCP - [facility] 09/23/17 (unrecognized sect ion and content) No Status Records Found INFORMATION SOURCE (unrecogn ized section and content) FOR RECORDS PERTAINING TO PATIENTS WHO ARE OR HAVE BEEN ENROLLED IN A CHEMICAL DEPENDENCY/SUBSTANCEABUSE PROGRAM, SOME INFORMATION MAY BE OMITTED. This clinical summary was aggregated from multiple sources. Caution should be exercised in using it in the provision of clinical care. This summary normalizes information from multiple sources, and as a consequence, information in this document may materially change the coding, format and clinical context of patient data. In addition, data may be omitted in some cases. CLINICAL DECISIONS SHOULD BE BASED ON THE PRIMARY CLINICAL RECORDS. [facility] [employer] [facility]. provides no warranty or guarantee of the accuracy or completeness of information in this document.
== END | disposition home or self-care (01) ==
LOC: LAB 11:02
PROVIDERS: PCP Family Medicine; Referring Provider Urology; Visit Provider Urology
DX: R97.20 Elevated prostate specific antigen [PSA] (principal)
CPT/HCPCS: 36415; 84153

== ENCOUNTER 2024-02-09 11:30 | Outpatient (RCR) | payer MEDICARE, SELFPAY ==
--- NOTE | 2023-11-29 15:37 | HP.PTEVAL ---
Patient's Visit Information Visit Information Visit Information: ROVERTO CALLEJAS is a 83 year old M referred to Physical Therapy by Dr. Colby Garcia MD with a diagnosis of radiculopathy, OA R hip. Date of Evaluation: 11/29/23 Physical Therapist: Taras Cardenas, DPT, OCS, CSCS Visit Plan Frequency: 2-3x /Week Duration: 4-6 Weeks Plan: 2-3x/week for 3-6 weeks starting 3 weeks for: 1/ stretch and rollout quad and HS B. Teach quad stretch for HEP(already doing HS) 2. core strength and general strnegth to I HEP back and hip ROM ext and flexion Subjective Subjective: Pain starting last June after chooping wood. Started R hip moved to LB and then down back of legs into HS. Got worse and worse until 05/05. Got steroids from doctor 5 day pack finished last week and now 75% better with pain 5/10 at worst. Worse with standing, better with walking on farm and can sit and do taxes well, stiff to get up. Sleep is now OK but was tough before steroid. 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 Can do these. Basic ADLs are I with bath, bathroom, dressing and steps but steps cause pain R groin. Pain R LB and HS area: Pain Intensity (Out of 10): 0 Pain Intensity Range: 0 and 8 Objective Objective: Walks stiff but steady adn I back to PT. Trasnfers I without UE. Steps reciprocal without rail. LB aROM ext mod limited, flexion mod limtied and painful R post hip. SB min limited and not painful. HS and quads max tight B at -40 90/90 test. Hip AROM WFL except extension very tight to 0 B, flexion to 100, rotations 50 er and 15 IR without pain. knee and ankle aROM WFL strength knees and ankles 5/5, hip ext adn abd 3+ and flexion 4 B, no pain. reflexes 1/3 patella and achilles B Sensation LE WNL to gross light touch. - MAHESH and FADDIR - slump and - SLR Balance/Special Test Scores Lower Extremity Functional Score: 55 Goals Goal 1:: Pain 1/10 at worst and 90% better overall Goal Time Frame: 4-6 Weeks Goal 2:: I appropriate HEP to limit futre problems(strength core and stretching LE.) Goal Time Frame: 4-6 Weeks Goal 3:: LEFS 65 Goal Time Frame: 4-6 Weeks Rehabilitation Potential Physical Therapy Diagnosis: stiffness and ROM loss causin pain and mobiltiy deficits. Rehabilitation Potential: Fair Anticipated Interventions Patient/Client Instruction: Educate patient on: Condition and Plan of Care For the Purpose of:: To decrease pain, To increase ROM, To improve nutrient delivery to tissue, To improve muscle performance and motor function and To increase tolerance to activity/condition/position Therapeutic Exercise to Include: Strength training, Postural training, Flexibilty training, Passive ROM and Active ROM For the Purpose of:: To decrease pain, To decrease swelling/inflammation, To increase ROM, To improve nutrient delivery to tissue, To improve muscle performance and motor function, To increase tolerance to activity/condition/position and To improve ability of physical actions for home/community/work/leisure Manual Therapy Techniques to Include: Mobilization, Passive ROM and Soft tissue mobilization For the Purpose of:: To decrease swelling/inflammation, To increase ROM and To improve nutrient delivery to tissue Thermo therapy (hot pack): Yes For the Purpose of:: To improve nutrient delivery to tissue Text: Thank you for the opportunity to evaluate your patient. For Medicare and Medicare HMO plans, please review the plan of care and approve it. It will need to be FAXED BACK to us at [phone] for Medicare purposes. For Medicare only, by signing this I certify the plan of care. Please let me know if there are questions or concerns regarding this plan of care. Physician Signature: Date:
--- NOTE | 2024-01-24 15:50 | HP.PTREVAL ---
Re-Evaluation Intro: Dr. Colby Garcia MD, It has been my pleasure to treat ROVERTO CALLEJAS over the last 15 visits for radiculopathy, OA R hip. Please see the progress note below for an update on the physical therapy plan of care! Subjective Subjective: R hip is fine, No pain lately and doing home exercise to manage it. had x ray of LB and has a little OA but now has L lateral leg pain for a couple weeks without reason. Able to step into jeans with R hip now. Activities with r hip back to normal. Will have x ray of knee at next appointment in 4 weeks. Objective Objective/Function: Walks well, steps reciprocally with some L antalgia. L ITB is tender to touch in mid substance and L ITB very tight. Hip aROM WFL, L knee is limited in ROM with slight pain. LB AROM ext min defict without pain, flexion is fair and no pain, SB are min limited without pain. 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 rollout and MH and aggressive stretch L ITB and HS, LB ROM exercises and progress to HEP. Treat ITB for 2 weeks and progress to core strength if no better. Likely will have knee x ray if not improved in a month. See new goals and fair prognosis Balance/Gait/Functional tests Balance/Special Test Scores Lower Extremity Functional Score: 64 Goals Goals Goal 1:: Pain 1/10 at worst and 90% better overall Goal Time Frame: 4-6 Weeks Goal Progress: 98% Goal 2:: I appropriate HEP to limit futre problems(strength core and stretching LE.) Goal Time Frame: 4-6 Weeks Goal Progress: Goal Met Goal 3:: LEFS 65 Goal Time Frame: 4-6 Weeks Goal Progress: Progressing Goal 4:: L leg pain 75% better and 1/10 at worst. Goal Time Frame: 2-4 Weeks Goal Progress: NEW GOAL. Goal 5:: I managemnt of L ITB pain Goal Time Frame: 2-4 Weeks Goal Progress: NEW GOAL Anticipated Interventions Anticipated Interventions Patient/Client Instruction: Educate patient on: Condition and Plan of Care For the Purpose of:: To decrease pain, To increase ROM, To improve nutrient delivery to tissue, To improve muscle performance and motor function and To increase tolerance to activity/condition/position Therapeutic Exercise to Include: Strength training, Postural training, Flexibilty training, Passive ROM and Active ROM For the Purpose of:: To decrease pain, To decrease swelling/inflammation, To increase ROM, To improve nutrient delivery to tissue, To improve muscle performance and motor function, To increase tolerance to activity/condition/position and To improve ability of physical actions for home/community/work/leisure Manual Therapy Techniques to Include: Mobilization, Passive ROM and Soft tissue mobilization For the Purpose of:: To decrease swelling/inflammation, To increase ROM and To improve nutrient delivery to tissue Thermo therapy (hot pack): Yes For the Purpose of:: To improve nutrient delivery to tissue Re-Evaluation Ending Re-evaluation ending: Please do not hesitate to contact me at [phone] by phone or if you have questions or concerns regarding this new plan of care! Sincerely, Taras Cardenas, DPT, OCS, CSCS
--- NOTE | 2024-02-09 12:15 | HP.PTDCSUM ---
Discharge Summary D/C summary: It has been my pleasure to treat ROVERTO CALLEJAS referred by Dr. 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 Discharge Date: 02/09/24 Please see the following information for a summary of their discharge status. Subjective Subjective: Getting better. Feel alot better. Less pain and noene this week. Doing well. HEP doing routinely. Sleep is OK. Activities are normal at home. To doctor Tuesday for knee Pain R LB and HS area: Pain Intensity (Out of 10): 1 Overall Improvement % Improvement: 100 Objective Objective/Function: Godd LB AROM without pain, walking without gait deviations today and steps reciprocally without rail. Feeling 150% better and very happy Goals Goal 1:: Pain 1/10 at worst and 90% better overall Goal Progress: Goal Met Goal 2:: I appropriate HEP to limit futre problems(strength core and stretching LE.) Goal Progress: Goal Met Goal 3:: LEFS 65 Goal Progress: Progressing Goal 4:: L leg pain 75% better and 1/10 at worst. Goal Progress: Goal Met Goal 5:: I managemnt of L ITB pain Goal Progress: Goal Met Plan Plan: d/c D/C Information Discharge Comments: To doctor for L knee next week. d/c sentence: If there are questions or concerns regarding this patient's physical therapy, please feel free to call me at [phone]. Thank you for the referral of this patient. Sincerely, Taras Cardenas, DPT, OCS, CSCS Balance/Gait/Functional tests Balance/Special Test Scores Lower Extremity Functional Score: 56 Improvement % Improvement: 100
== END 2024-02-09 12:29 | disposition home or self-care (01) ==
LOC: PT 11:30
PROVIDERS: PCP Family Medicine; Referring Provider Specialist; Visit Provider Specialist
DX: M54.16 Radiculopathy, lumbar region (principal); M25.551 Pain in right hip; M16.11 Unilateral primary osteoarthritis, right hip
CPT/HCPCS: 97110; 97140; 97161; 97164; 97530

== ENCOUNTER → 2024-03-08 | Outpatient (CLI) | payer MEDICARE, SELFPAY ==
[2024-03-08 13:44] LABS: PSA,Total- Diagnostic < 0.01 ng/mL (0.0-4.0)
== END | disposition home or self-care (01) ==
PROVIDERS: PCP Family Medicine; Referring Provider Urology; Visit Provider Urology
DX: C61 Malignant neoplasm of prostate (principal)
CPT/HCPCS: 36415; 84153

== ENCOUNTER → 2024-07-19 | Outpatient (CLI) | payer MEDICARE, SELFPAY ==
[2024-07-19 12:02] LABS: Absolute Lymphocyte Count 0.77 X10^3/uL (0.83-4.51); Absolute Neutrophil Count 3.5 X10^3/uL (2.0-7.7); Basophil# 0.03 X10^3/uL; Basophil% 0.6 % (0-1); Eosinophil# 0.14 X10^3/uL; Eosinophils% 2.9 % (0-5); Hemoglobin 13.5 g/dL (13.0-16.5); Lymphocyte # 0.77 X10^3/ul (0.83-4.51); Lymphocyte % 15.7 % (19-41); Mean Corp Hgb Conc 32.9 g/dL (32-36); Mean Corpuscular Hgb 31.4 pg (27.0-32.0); Mean Corpuscular Volume 95.3 fL (80-94); Mean Platelet Vol. 10.8 fl (6.2-12.0); Monocyte# 0.47 X10^3/uL; Monocyte% 9.6 % (0-10); NRBC Flagged by Analyzer 0 % (0-5); Neutrophil # 3.47 X10^3/uL (2.7-7.7); Neutrophil % 70.8 % (47-70); Platelet Count 192 K/mm3 (150-450); RBC Distribution Width SD 45.2 fl (35.1-43.9); White Blood Count 4.9 K/mm3 (4.4-11.0)
[2024-07-19 12:19] LABS: Vitamin D,25 Hydroxy 32.7 ng/mL
[2024-07-19 13:03] LABS: ALB/GLOB Ratio 1.1 RATIO (0.9-2.4); AST(SGOT) 21 U/L (15-37); Alanine Aminotransfer ALT/SGPT 36 U/L (16-61); Albumin, Serum 3.7 g/dL (3.2-5.0); Alkaline Phosphatase 79 U/L (45-117); Anion Gap 5 (5-15); BUN 17 mg/dL (7-18); BUN/Creat Ratio 15.3 RATIO (10-20); Calcium,Total 9.4 mg/dL (8.5-10.1); Chloride 108 mmol/L (98-107); Cholesterol 185 mg/dL (200); Creatinine, Serum 1.11 mg/dL (0.70-1.30); EST Glomerular Filtration Rate 67 mL/min (>60); Est Glom Filt Rate - Afr Amer 81 mL/min (>60); Globulin 3.4 g/dL (2.2-4.2); Glucose 114 mg/dL (74-106); High Density Lipoprotein 53 mg/dL; Protein, Total 7.1 g/dL (6.4-8.2); Sodium Level 140 mmol/L (136-145); Triglycerides 118 mg/dL; Very Low Density Lipoprotein 24 mg/dL (5-40)
[2024-07-19 15:08] LABS: Hemoglobin A1c 5.8 % (3.8-5.6)
== END | disposition home or self-care (01) ==
LOC: BFHLAB 10:37
PROVIDERS: PCP Family Medicine; Referring Provider Family Medicine; Visit Provider Family Medicine
DX: I10 Essential (primary) hypertension (principal); E78.5 Hyperlipidemia, unspecified; E55.9 Vitamin D deficiency, unspecified; R73.01 Impaired fasting glucose
CPT/HCPCS: 36415; 80053; 80061; 82306; 83036; 85025

== ENCOUNTER → 2024-09-11 | Outpatient (CLI) | payer MEDICARE, SELFPAY ==
[2024-09-11 12:11] LABS: PSA,Total- Diagnostic < 0.01 ng/mL (0.0-4.0)
== END | disposition home or self-care (01) ==
LOC: LAB 10:49
PROVIDERS: PCP Family Medicine; Referring Provider Nurse Practitioner; Visit Provider Nurse Practitioner
DX: C61 Malignant neoplasm of prostate (principal)
CPT/HCPCS: 36415; 84153

== ENCOUNTER → 2025-03-08 | Outpatient (CLI) | payer MEDICARE, SELFPAY ==
[2025-03-08 12:16] LABS: PSA,Total- Diagnostic < 0.02 ng/mL (0.00-4.00)
== END | disposition home or self-care (01) ==
LOC: LAB 11:11
PROVIDERS: PCP Family Medicine; Referring Provider Nurse Practitioner; Visit Provider Nurse Practitioner
DX: C61 Malignant neoplasm of prostate (principal)
CPT/HCPCS: 36415; 84153

== ENCOUNTER → 2025-09-06 | Outpatient (CLI) | payer MEDICARE, SELFPAY ==
[2025-09-06 12:08] LABS: PSA,Total- Diagnostic < 0.02 ng/mL (0.00-4.00)
== END | disposition home or self-care (01) ==
LOC: LAB 09:57
PROVIDERS: PCP Family Medicine; Referring Provider Nurse Practitioner; Visit Provider Nurse Practitioner
DX: C61 Malignant neoplasm of prostate (principal)
CPT/HCPCS: 36415; 84153